=== PATIENT | female | born 1940 | race Caucasian/White ===

== ENCOUNTER 2021-05-13 07:40 | Observation (INO) ==
[2021-05-13] MEDS ORDERED: NS 500 ML IV 500 ML IV ONE ×2 (08:05→08:11)
--- NOTE | 2021-05-13 08:12 | DR.GENAD ---
HPI Time Seen Time Seen by Provider: 05/13/21 08:04 PCP Primary Care Physician: GINA FUENTES Complaint/Symptoms Chief Complaint Doctors Comments: 80 female presentas with recurrent falls over the past several weeks. Gets up, left leg gives out and falls. No acute injuries. Has chronic pain of low back, Denies recent illness - no fevers, chills, URI symptoms, bowel or bladder complaints. Has an ortho appt in 2 days for evaluation of her leg weakness. Chief Complaint:: PT STATES THAT SHE HAS HAD MULTIPLE FALLS OVER THE PAST FEW DAYS AND C/O GENERALIZED PAIN "ALL OVER." DENIES LOC. COVID-19 Coronavirus risk:travel/contact w/high risk person: No Has patient experienced Coronavirus symptoms: No Nurses notes reviewed Nurses Notes Review: Yes Source History Provided: Patient Mode of Arrival Mode of Arrival: EMS Timing Onset of Chief Complaint: 05/13/21 Came on: Suddenly Duration Duration: Intermittent Duration: Weeks Severity Severity: Mild Modifying Factors Worsens:: attempts at ambulation Improves:: rest Associated Signs and Symptoms Associated Signs and Symptoms: low back pain, otherwise denies PMH PMH Past Medical History: Yes Past Medical History: Arthritis, Asthma, CHF and COPD Past Surgical History: Yes Surgical History: Cholecystectomy Past Surgical History Comment: COLON SURGERY (removal of tumor), hernia repair, lipoma removal Family History History of Family Medical Conditions: No (UNSURE) Social History Does patient currently use any type of tobacco product: No Have you used tobacco products in the last 12 months: No Type of Tobacco Use: None Does any household member use tobacco: No Alcohol Use: None Do you use any recreational Drugs:: No Lives With: Family Lives Where: Home Travel Risk Coronavirus risk:travel/contact w/high risk person: No Has patient experienced Coronavirus symptoms: No Infectious screening In the last 2 months have you had wt loss of >10#?: NO Have you had fever, night sweats or hemotysis?: No Have you traveled outside the country in the last 6 months?: No Isolation: Standard ROS Review of Systems Constitutional: No Symptoms Reported; negative Chills and Fever Eyes: No Symptoms Reported ENTM: No Symptoms Reported Respiratoy: No Symptoms Reported Cardiovascular: No Symptoms Reported Gastrointestinal/Abdominal: No Symptoms Reported Genitourinary: No Symptoms Reported Neurological: No Symptoms Reported Musculoskeletal: Back Pain Integumentary: No Symptoms Reported Hematologic/Lymphatic: No Symptoms Reported Endocrine: No Symptoms Reported Psychiatric: No Symptoms Reported All Other Systems: Reviewed and Negative PE Vital Signs Vitals: Temperature 98.0 F Pulse Rate 67 Respiratory Rate 20 Blood Pressure 125/59 O2 Sat by Pulse Oximetry 96 General Limitations: No Limitations General Appearance: Alert, In No Apparent Distress and Other (+ [facility] [place]) Head Head Exam: Normal Inspection and Atraumatic Eyes Eye exam: Normal Appearance ENT ENT Exam: Normal Exam Neck Neck Exam: Normal Inspection and Full ROM Chest Chest Inspection: Normal Inspection; negative Tenderness Respiratory Respiratory Exam: Normal Lung Sounds Bilat Respiratory Exam: Bilateral: Clear to Auscultation Cardiovascular Cardiovascular Exam: Regular Rate, Normal Rhythm and Normal Heart Sounds Abdominal Exam Abdominal Exam: Normal Inspection; negative Tenderness Extremities Extremities Exam: Normal Inspection, Full ROM and Edema Back Back Exam: Normal Inspection and Tenderness (paralumbar region) Neurologic Neurological Exam: Alert, Oriented X3 and CN II-XII Intact; negative Motor Sensory Deficit Psychiatric Psychiatric Exam: Normal Affect Skin Skin Exam: Warm, Dry and Intact MDM Differential Diagnosis Differential Diagnosis: DDD, spinal stenosis, OA, sciatica COURSE Treatment Treatment: 80 y/o female with several falls over past weeks due to legs giving out. PE benign, w/u performed, no acute abnormalities. Does have lumbar DDD. Has appt with ortho in 2 days. Was given tramadol here for pain. [facility] pt very limited on her own. U/A dirty, possible UTI. Will add urine culture, cover with IV Rocephin. Discussed with the hospitalist, Dr. Boo. Will admit for observation. Consultation Called: 10:18 Call Returned: 10:20 Consultation Comments: Dr. Boo agrees to observation admission. ROR Labs Reviewed Laboratory Results Reviewed?: Yes Result Diagrams: 05/13/21 08:27 05/13/21 08:27 Laboratory: WBC 6.4 X10^3/uL (3.6-10.0) 05/13/21 08:27 RBC 3.59 X10^6/uL (3.5-5.4) 05/13/21 08:27 Hgb 11.9 g/dL (12.0-16.0) L 05/13/21 08: Hct 34.6 % (36.0-47.0) L 05/13/21 08:27 MCV 96.5 fL (80.0-100.0) 05/13/21 08: MCH 33.1 pg (27.0-34.0) 05/13/21 08: MCHC 34.3 g/dL (33.0-35.0) 05/13/21 08: RDW 13.8 % (11.6-16.5) 05/13/21 08: Plt Count 201 X10^3/uL (150.0-450.0) 05/13/21 08: MPV 8.7 fL (7.4-11.0) 05/13/21 08: Neut % (Auto) 73.1 % (42.0-75.0) 05/13/21 08: Lymph % (Auto) 17.5 % (21.0-51.0) L 05/13/21 08: [place] % (Auto) 7.7 % (0.0-13.0) 05/13/21 08: Eos % (Auto) 1.1 % (0.9-2.9) 05/13/21 08: Baso % (Auto) 0.6 % (0.2-1.0) 05/13/21 08: Neut # (Auto) 4.7 x10^3/uL (2.2-4.8) 05/13/21 08: Lymph # (Auto) 1.1 X10^3/uL (1.3-2.9) L 05/13/21 08:27 [place] # (Auto) 0.5 x10^3/uL (0.3-0.8) 05/13/21 08:27 Eos # (Auto) 0.1 x10^3/uL (0.0-0.2) 05/13/21 08: Baso # (Auto) 0.0 X10^3/uL (0.0-0.1) 05/13/21 08: Absolute Nucleated RBC 0.1 /100WBC 05/13/21 08:27 Sodium 137 mmol/L (136-145) 05/13/21 08:27 Corrected Sodium TNP 05/13/21 08:27 Potassium 4.9 mmol/L (3.5-5.1) 05/13/21 08:27 Chloride 103 mmol/L (98-107) 05/13/21 08:27 Carbon Dioxide 23.9 mmol/L (21-32) 05/13/21 08:27 BUN 38 mg/dL (7-18) H 05/13/21 08:27 Creatinine 1.83 mg/dL (0.55-1.02) H 05/13/21 08:27 Est GFR (MDRD) Af Amer 34 (>60) L 05/13/21 08:27 Est GFR (MDRD) Non-Af 28 (>60) L 05/13/21 08:27 Glucose 108 mg/dL (65-99) H 05/13/21 08:27 Calcium 9.0 mg/dL (8.5-10.1) 05/13/21 08:27 Corrected Calcium TNP 05/13/21 08:27 Magnesium 2.9 mg/dL (1.7-2.9) 05/13/21 08:27 Total Bilirubin 0.40 mg/dL (0.2-1.0) 05/13/21 08:27 AST 26 Units/L (15-37) 05/13/21 08:27 ALT 57 Units/L (12-78) 05/13/21 08:27 Alkaline Phosphatase 92 Units/L (46-116) 05/13/21 08:27 Creatine Kinase 155 Units/L (26-192) 05/13/21 08:27 CK-MB (CK-2) 4.1 ng/mL (0-4.0) H 05/13/21 08:27 CK/CKMB % Calc 2.7 % (<4) 05/13/21 08:27 Troponin I < 0.02 ng/mL (0-1.5) 05/13/21 08:27 Total Protein 7.8 g/dL (6.4-8.2) 05/13/21 08:27 Albumin 3.8 g/dL (3.4-5.0) 05/13/21 08:27 Globulin 4.0 g/dL (2.5-4.5) 05/13/21 08:27 Albumin/Globulin Ratio 1.0 Ratio (1.1-2.1) L 05/13/21 08:27 Specimen Type Random urine 05/13/21 09:32 Urine Color Yellow (YELLOW) 05/13/21 09:32 Urine Appearance Clear (CLEAR) 05/13/21 09:32 Urine pH 5.0 (5.0 - 8.0) 05/13/21 09:32 Ur Specific [place] 1.015 (1.000-1.030) 05/13/21 09:32 Urine Protein 2+ (NEGATIVE) 05/13/21 09:32 Urine Glucose (UA) Negative (NEGATIVE) 05/13/21 09:32 Urine Ketones Negative (NEGATIVE) 05/13/21 09:32 Urine Occult Blood Negative (NEGATIVE) 05/13/21 09:32 Urine Nitrite Negative (NEGATIVE) 05/13/21 09:32 Urine Bilirubin Negative (NEGATIVE) 05/13/21 09:32 Urine Urobilinogen Normal (NORMAL) 05/13/21 09:32 Ur Leukocyte Esterase Negative (NEGATIVE) 05/13/21 09:32 Urine RBC 3-5 /HPF (0-3) A 05/13/21 09:32 Urine WBC 5-10 /HPF (0-5) A 05/13/21 09:32 Ur Squamous Epith Cells Numerous /HPF (NEGATIVE) 05/13/21 09:32 Ur Transition Epith Cell Few /HPF (NEGATIVE) 05/13/21 09:32 Amorphous Sediment 1+ /HPF (NEGATIVE) 05/13/21 09:32 Urine Bacteria Trace /HPF (NEGATIVE) 05/13/21 09:32 Hyaline Casts Few /LPF (NEGATIVE) 05/13/21 09:32 Granular Casts Few /LPF (NEGATIVE) 05/13/21 09:32 Ur Culture Indicated? No/not indicated 05/13/21 09:32 Other Results Comments: Labs acceptable, sirty urine, but possible UTI. XRAY XRAY Interpreted by: Radiologist X-ray Results: Lumbar CT with DDD Opioid Opioid Risk Tool Age (Negrito box if 16-45): No History of Preadolescent Sexual Abuse: No Total: 0 Total Score Risk Category: Low Risk Copyright: Víctor INGRAM predicting aberrant behaviors Diagnosis Discharge Problem: DDD (degenerative disc disease), lumbar, General weakness, Acute UTI
[2021-05-13] MEDS ORDERED: ULTRAM PO ONE (08:30)
[2021-05-13] MEDS ORDERED: ULTRAM ONE ×2 (08:30→12:15)
[2021-05-13 08:34] LABS: BASOPHILS % (AUTO) 0.6 % (0.2-1.0); EOSINOPHILS # (AUTO) 0.1 x10^3/uL (0.0-0.2); EOSINOPHILS % (AUTO) 1.1 % (0.9-2.9); HEMATOCRIT 34.6 % (36.0-47.0); HEMOGLOBIN 11.9 g/dL (12.0-16.0); LYMPHOCYTES # (AUTO) 1.1 X10^3/uL (1.3-2.9); LYMPHOCYTES % (AUTO) 17.5 % (21.0-51.0); MEAN CORPUSCULAR HEMOGLOBIN 33.1 pg (27.0-34.0); MEAN CORPUSCULAR HGB CONC 34.3 g/dL (33.0-35.0); MEAN CORPUSCULAR VOLUME 96.5 fL (80.0-100.0); MEAN PLATELET VOLUME 8.7 fL (7.4-11.0); MONOCYTES # (AUTO) 0.5 x10^3/uL (0.3-0.8); MONOCYTES % (AUTO) 7.7 % (0.0-13.0); NEUTROPHILS # (AUTO) 4.7 x10^3/uL (2.2-4.8); NEUTROPHILS % (AUTO) 73.1 % (42.0-75.0); PLATELET COUNT 201 X10^3/uL (150.0-450.0); RED BLOOD COUNT 3.59 X10^6/uL (3.5-5.4); RED CELL DISTRIBUTION WIDTH 13.8 % (11.6-16.5); WHITE BLOOD COUNT 6.4 X10^3/uL (3.6-10.0)
[2021-05-13 09:13] LABS: ALANINE AMINOTRANSFERASE 57 Units/L (12-78); ALBUMIN 3.8 g/dL (3.4-5.0); ALKALINE PHOSPHATASE 92 Units/L (46-116); ASPARTATE AMINO TRANSFERASE 26 Units/L (15-37); BLOOD UREA NITROGEN 38 mg/dL (7-18); CARBON DIOXIDE 23.9 mmol/L (21-32); CHLORIDE 103 mmol/L (98-107); CKMB % 2.7 % (<4); CREATINE KINASE 155 Units/L (26-192); CREATININE 1.83 mg/dL (0.55-1.02); MAGNESIUM 2.9 mg/dL (1.7-2.9); SODIUM 137 mmol/L (136-145); TOTAL PROTEIN 7.8 g/dL (6.4-8.2); TROPONIN I < 0.02 ng/mL (0-1.5); eGFR NON BLACK RACES 28 (>60)
--- NOTE | 2021-05-13 09:16 | CT ---
HISTORYLLE WEAKNESS, FALLINGSTUDYLUMBAR SPINE W/O CONCOMPARISONNoneTECHNIQUEMultiple CT axial images of the lumbar spine were obtained without IV contrast. Coronal and sagittal images were reconstructed. Dose reduction techniques included Automated Exposure Control (AEC) and adjustment of mA and kV.FINDINGSMinimal levoconvex spinal asymmetry. The usual lordosis is maintained.The heights of the vertebral bodies are normal. Very minimal grade 1 anterior spondylolisthesis of L4 on L5 is due to left-sided spondylolysis. Minimal retrolisthesis of L5 on S1 is due to degenerative change. There is no fracture.Degenerative disc disease present at multiple levels, most severe at L2-3 and L5-S1. 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 No hydronephrosis. Probable right renal cyst measures 2.5 cm. No abdominal aortic aneurysm.IMPRESSION1. No acute finding2. Degenerative changesElectronically signed by: Edward Parson (May 13, 2021 09:15:07)
[2021-05-13 09:18] LABS: CREATINE KINASE MB 4.1 ng/mL (0-4.0)
[2021-05-13 09:51] LABS: BILIRUBIN,URINE NEGATIVE (NEGATIVE); BLOOD/HEMOGLOBIN,URINE NEGATIVE (NEGATIVE); GLUCOSE, URINE NEGATIVE (NEGATIVE); KETONES,URINE NEGATIVE (NEGATIVE); LEUKOCYTE ESTERASE ,URINE NEGATIVE (NEGATIVE); NITRITES,URINE NEGATIVE (NEGATIVE); PROTEIN,URINE 2+ (NEGATIVE); UROBILINOGEN,URINE NORMAL (NORMAL)
[2021-05-13 10:00] LABS: APPEARANCE,URINE CLEAR (CLEAR); COLOR,URINE YELLOW (YELLOW)
[2021-05-13 10:10] LABS: AMORPHOUS SEDIMENT,UR 1+ /HPF (NEGATIVE); BACTERIA,URINE TRACE /HPF (NEGATIVE); GRANULAR CASTS,URINE FEW /LPF (NEGATIVE); HYALINE CASTS, URINE FEW /LPF (NEGATIVE); SQUAMOUS EPITHELIAL CELL,UR NUMEROUS /HPF (NEGATIVE); TRANSITIONAL EPI CELLS,URINE FEW /HPF (NEGATIVE)
[2021-05-13] MEDS: ULTRAM PO PRN ×2 (12:19→22:53)
[2021-05-13] MEDS ORDERED: ROCEPHIN 1 GRAM IV PREMIX 1 G/50 ML IV.SOLN. IV ONE (12:20)
[2021-05-13] MEDS: ROCEPHIN 1 GRAM IV PREMIX 1 G/50 ML IV.SOLN. IV SCH (13:21)
--- NOTE | 2021-05-13 15:42 | DR.H&P ---
H&P - History & Physical for Day of: H&P Date: 05/13/21 - Chief Complaint Chief Complaint: weakness, falls, lower back pain - History of Present Illness History of Present Illness: PT IS 80 WF ER ADMISSION WITH CO MULTIPLE RECENT FALLS WITH LEGS WEAK AND LOWER BACK PAIN. PT HAS PMH OF CHF, COPD, OA. PT DENIES ANY FEVER OR CCC. PT DENIES ANY KNOWN COVID EXPOSURE. PT ADMITTED FOR TREATMENT AND EVALUATION OF ACUTE ILLNESS. - Past Medical History Past Medical History: COPD, Asthma, Arthritis, CHF - Past Surgical History Surgical History: Cholecystectomy - Social History Does patient currently use any type of tobacco product: No Have you used tobacco products in the last 12 months: No Type of Tobacco Use: None Does any household member use tobacco: No Alcohol Use: None Prescription drug monitoring program results: PDMP reviewed and no concerns identified - Medications Home Medications: codeine Adverse Reaction (Verified 05/13/21 07:52) CONTINUE taking the following medications cephalexin 500 mg PO Q8H 05/13/21 [History] cetirizine 10 mg PO HS 05/13/21 [History] fenofibrate nanocrystallized 145 mg PO DAILY 05/13/21 [History] fluticasone propion-salmeterol 1 inh INHALATION BID 05/13/21 [History] gabapentin 100 mg PO TID 05/13/21 [History] ibuprofen 600 mg PO TID PRN 05/13/21 [History] meloxicam 15 mg PO DAILY 05/13/21 [History] methocarbamol 750 mg PO TID PRN 05/13/21 [History] omeprazole 40 mg PO DAILY 05/13/21 [History] - Review of Systems Constitutional: Weakness Eyes: No Symptoms Reported ENT: No Symptoms Reported Respiratory: No Symptoms Reported Cardiovascular: No Symptoms Reported Gastrointestinal: No Symptoms Reported Musculoskeletal: Back Pain, Leg Pain Skin: No Symptoms Reported Neurological: Weakness - Physical Exam Vital Signs: Temperature 98.0 F Pulse Rate 69 Respiratory Rate 20 Blood Pressure 116/62 O2 Sat by Pulse Oximetry 94 Oriented: Normal Eyes: Normal Ear: Normal Nose: Normal Throat: Normal Respiratory: RLL Diminished, LLL Diminished Cardiovascular: Normal : Normal Auscultation: Bowel Sounds: Normal Palpation: Normal Tenderness: Normal Skin: Decreased Turgur Musculoskeletal: Motor Deficit Psychiatric: Normal Speech Pattern: Clear, Appropriate - Assessment/Plan (1) General weakness Status: Acute Plan: ADMIT, GENTLE IV HYDRATION. STRICT I&S. EKG AND CXR ON ADMISSION, BLOOD AND URINE CULTURE ON ADMISSION. VERIFY HOME MEDICATION, IV ROCEPHIN. BP AND CARDIAC MONITORING (2) DDD (degenerative disc disease), lumbar Status: Acute (3) Acute UTI Status: Acute (4) Falls frequently Status: Acute - Allergies Allergies/Adverse Reactions: Allergies Allergy/AdvReac Type Severity Reaction Status Date / Time rosalino AdvReac Verified 05/13/21 07:52
--- NOTE | 2021-05-13 16:01 | RAD ---
HISTORYHX COPD, CHFSTUDYCHEST, 1 VIEWCOMPARISONNone availableTECHNIQUEChest radiographic imaging, frontal projection, 1 imageFINDINGSMild cardiomegaly.Mild increased interstitial markings; likely senescent changes.No focal airspace disease.No pleural effusion.No pneumothorax.No acute osseous abnormality.IMPRESSIONNo imaging findings of acute cardiopulmonary disease.Electronically signed by: Vipin Luque (May 13, 2021 15:59:50)
[2021-05-13] MEDS ORDERED: NORCO 5/325 MG TAB ONE (16:39)
[2021-05-13] MEDS: NORCO 5/325 MG TAB PO PRN (16:45)
[2021-05-13] MEDS: NS 1000 ML 1,000 ML IV SCH ×2 (16:46→21:38)
[2021-05-13] MEDS: NEURONTIN CAP 100 MG PO SCH ×2 (16:46→21:38)
[2021-05-13] MEDS ORDERED: NS 1000 ML 1,000 ML ONE (16:47)
[2021-05-13] MEDS ORDERED: NEURONTIN CAP 100 MG ONE (16:47)
--- NOTE | 2021-05-13 17:13 | RAD ---
HISTORYLeft hip painSTUDYTwo views right and left hipCOMPARISONNoneFINDINGSA single frontal view of the pelvis demonstrates the pelvic ring to be intact. No evidence for acute cortical disruption or dislocation of the hip can be observed. Frog leg views of the right and left hip fail to demonstrate evidence for fracture. Moderate degenerative changes of the right and left hip are observed with osteophyte formation of the right and left superior lateral acetabulum.IMPRESSIONModerate degenerative changes of the right and left hip without acute abnormality identified.Electronically signed by: JIN RODRIGUEZ (May 13, 2021 17:11:17)
[2021-05-13] MEDS: ZyrTEC TAB 10 MG PO SCH (21:38)
[2021-05-14] MEDS: NEURONTIN CAP 100 MG PO SCH ×3 (05:26→21:02)
[2021-05-14] MEDS: NS 1000 ML 1,000 ML IV SCH ×2 (05:26→20:35)
[2021-05-14 06:07] LABS: BASOPHILS % (AUTO) 0.8 % (0.2-1.0); EOSINOPHILS # (AUTO) 0.1 x10^3/uL (0.0-0.2); HEMATOCRIT 29.3 % (36.0-47.0); HEMOGLOBIN 10.1 g/dL (12.0-16.0); LYMPHOCYTES # (AUTO) 1.2 X10^3/uL (1.3-2.9); MEAN CORPUSCULAR HEMOGLOBIN 33.2 pg (27.0-34.0); MEAN CORPUSCULAR HGB CONC 34.3 g/dL (33.0-35.0); MEAN CORPUSCULAR VOLUME 96.8 fL (80.0-100.0); MEAN PLATELET VOLUME 8.8 fL (7.4-11.0); MONOCYTES # (AUTO) 0.4 x10^3/uL (0.3-0.8); NEUTROPHILS # (AUTO) 3.2 x10^3/uL (2.2-4.8); NEUTROPHILS % (AUTO) 64.2 % (42.0-75.0); PLATELET COUNT 171 X10^3/uL (150.0-450.0); RED BLOOD COUNT 3.03 X10^6/uL (3.5-5.4); RED CELL DISTRIBUTION WIDTH 13.6 % (11.6-16.5)
[2021-05-14 06:29] LABS: ALANINE AMINOTRANSFERASE 43 Units/L (12-78); ALKALINE PHOSPHATASE 73 Units/L (46-116); ASPARTATE AMINO TRANSFERASE 21 Units/L (15-37); BLOOD UREA NITROGEN 33 mg/dL (7-18); CALCIUM 8.5 mg/dL (8.5-10.1); CARBON DIOXIDE 25.8 mmol/L (21-32); CHLORIDE 108 mmol/L (98-107); COR CA(FOR HYPOALB) 9.3 mg/dL (8.5-10.1); CREATININE 1.27 mg/dL (0.55-1.02); SODIUM 139 mmol/L (136-145); TOTAL PROTEIN 6.1 g/dL (6.4-8.2); eGFR NON BLACK RACES 43 (>60)
[2021-05-14] MEDS: NORCO 5/325 MG TAB PO PRN ×2 (07:48→16:20)
[2021-05-14] MEDS: TRICOR TAB 145 MG PO SCH (08:54)
[2021-05-14] MEDS: ROCEPHIN 1 GRAM IV PREMIX 1 G/50 ML IV.SOLN. IV SCH (08:54)
[2021-05-14] MEDS: LOVENOX INJ 40 MG SYR SC SCH (08:58)
[2021-05-14 09:30] LABS: URIC ACID 4.9 mg/dL (2.6-6.0)
[2021-05-14 10:07] LABS: RHEUMATOID FACTOR NEGATIVE (NEGATIVE)
[2021-05-14] MEDS: MORPHINE SULFATE INJ 2 MG INJ IVP PRN ×2 (11:25→20:35)
[2021-05-14] MEDS: SOLU-Medrol 40 MG VIAL IVP SCH ×3 (14:38→22:00)
[2021-05-14] MEDS: ULTRAM PO PRN (14:40)
[2021-05-14] MEDS: ZyrTEC TAB 10 MG PO SCH (20:35)
[2021-05-15] MEDS: NORCO 5/325 MG TAB PO PRN ×2 (03:17→15:00)
[2021-05-15] MEDS: SOLU-Medrol 40 MG VIAL IVP SCH ×3 (05:12→14:10)
[2021-05-15] MEDS: NEURONTIN CAP 100 MG PO SCH ×3 (05:12→22:01)
[2021-05-15 08:36] LABS: BASOPHILS % (AUTO) 0.1 % (0.2-1.0); HEMATOCRIT 33.4 % (36.0-47.0); HEMOGLOBIN 11.3 g/dL (12.0-16.0); LYMPHOCYTES # (AUTO) 0.6 X10^3/uL (1.3-2.9); LYMPHOCYTES % (AUTO) 8.9 % (21.0-51.0); MEAN CORPUSCULAR HEMOGLOBIN 32.8 pg (27.0-34.0); MEAN CORPUSCULAR HGB CONC 33.8 g/dL (33.0-35.0); MEAN CORPUSCULAR VOLUME 97.1 fL (80.0-100.0); MEAN PLATELET VOLUME 8.9 fL (7.4-11.0); MONOCYTES # (AUTO) 0.1 x10^3/uL (0.3-0.8); MONOCYTES % (AUTO) 1.2 % (0.0-13.0); NEUTROPHILS # (AUTO) 6.1 x10^3/uL (2.2-4.8); NEUTROPHILS % (AUTO) 89.8 % (42.0-75.0); PLATELET COUNT 195 X10^3/uL (150.0-450.0); RED BLOOD COUNT 3.44 X10^6/uL (3.5-5.4); RED CELL DISTRIBUTION WIDTH 13.5 % (11.6-16.5); WHITE BLOOD COUNT 6.8 X10^3/uL (3.6-10.0)
[2021-05-15 08:52] LABS: ALANINE AMINOTRANSFERASE 46 Units/L (12-78); ALBUMIN 3.1 g/dL (3.4-5.0); ALKALINE PHOSPHATASE 82 Units/L (46-116); ASPARTATE AMINO TRANSFERASE 31 Units/L (15-37); BLOOD UREA NITROGEN 22 mg/dL (7-18); CALCIUM 8.9 mg/dL (8.5-10.1); CARBON DIOXIDE 28.4 mmol/L (21-32); CHLORIDE 105 mmol/L (98-107); COR CA(FOR HYPOALB) 9.6 mg/dL (8.5-10.1); COR NA(FOR HYPERGLY) 139 mmol/L (136-145); CREATININE 1.06 mg/dL (0.55-1.02); SODIUM 138 mmol/L (136-145); TOTAL PROTEIN 6.9 g/dL (6.4-8.2); eGFR NON BLACK RACES 53 (>60)
[2021-05-15] MEDS: ROCEPHIN 1 GRAM IV PREMIX 1 G/50 ML IV.SOLN. IV SCH (09:03)
[2021-05-15] MEDS: TRICOR TAB 145 MG PO SCH (09:04)
[2021-05-15] MEDS: LOVENOX INJ 40 MG SYR SC SCH (09:04)
[2021-05-15] MEDS: ZESTRIL TAB 5 MG PO SCH (09:08)
[2021-05-15] MEDS: MORPHINE SULFATE INJ 2 MG INJ IVP PRN ×2 (09:09→18:15)
[2021-05-15] MEDS ORDERED: COLACE CAP 100 MG PO PRN (09:16)
[2021-05-15] MEDS ORDERED: MILK OF MAGNESIA PO PRN (09:16)
--- NOTE | 2021-05-15 09:49 | CT ---
HISTORYPAIN IN PELVISSTUDYCT pelvis without IV contrastCOMPARISONX-ray 05/13/2021TECHNIQUEMultiple axial images of the pelvis are obtained without the administration of IV contrast. Dose reduction techniques including Automated Exposure Control (AEC) and adjustment of mA and kV were utilized.FINDINGSModerate arthritic changes are seen in both hips, right greater than left. No widening of the symphysis pubis or SI joints. Fracture or dislocation is seen. Prior anterior pelvic wall repair without suggestion hernia in the pelvis. No inguinal hernia is seen. Atrophy is seen in the gluteus muscles bilaterally.Large posterior osteophytes are seen at L5-S1 with moderate posterior element hypertrophy. Likely moderate thecal sac effacement and prominent lateral recess stenosis at this level. Prominent bilateral neural foraminal narrowing is seen. Likely prominent central canal lateral recess stenosis at L4-5. Bladder is partially decompressed with a Kim catheter.IMPRESSIONModerate arthritic changes in the hips. No acute bony abnormality is identified.Prominent spondylosis in the lower lumbar spine.Electronically signed by: Santy Todd (May 15, 2021 09:46:16)
[2021-05-15] MEDS: NS 1000 ML 1,000 ML IV SCH (19:35)
[2021-05-15] MEDS: ZyrTEC TAB 10 MG PO SCH (20:40)
[2021-05-15] MEDS: COLACE CAP 100 MG PO SCH (20:40)
[2021-05-15] MEDS: MILK OF MAGNESIA PO SCH (20:40)
--- NOTE | 2021-05-15 22:31 | RAD ---
HISTORYPREVIOUS FALL/PAIN Relevant Clinical InformationSTUDYANKLE, LEFTCOMPARISONNoneFINDINGSNo acute cortical disruption or dislocation can be identified. The ankle mortise remains well aligned. No significant soft tissue swelling or injury can be seen. The visualized portions of the talus and calcaneus are unremarkable. small posterior calcaneal osteophyte.IMPRESSIONSmall posterior calcaneal osteophyte.No acute bony abnormalityElectronically signed by: Severino Cuellar (May 15, 2021 22:28:46)
--- NOTE | 2021-05-15 22:32 | RAD ---
HISTORYPREVIOUS FALL/PAIN Relevant Clinical InformationSTUDYFOOT, LEFTCOMPARISONNoneFINDINGSNo acute cortical disruption or dislocation can be identified. No significant soft tissue swelling or injury can be seen. The visualized portions of the talus and calcaneus are unremarkable. Mild hammertoe deformities.IMPRESSIONNo acute bony abnormalityElectronically signed by: Severino Cuellar (May 15, 2021 22:30:03)
--- NOTE | 2021-05-15 22:35 | RAD ---
HISTORYPREVIOUS FALL/PAIN Relevant Clinical InformationSTUDYLOWER LEG, TIB/FIB LEFTCOMPARISONNoneFINDINGSAP and lateral radiographs of the lower extremity demonstrate no evidence for acute cortical disruption. No significant soft tissue abnormality can be identified. Moderate degenerative changes involving the left knee joint. Vascular calcifications.IMPRESSIONModerate degenerative osteoarthritic changes left knee joint.No acute bony abnormalityElectronically signed by: Severino Cuellar (May 15, 2021 22:32:30)
[2021-05-16] MEDS: NS 1000 ML 1,000 ML IV SCH ×2 (00:22→16:05)
[2021-05-16] MEDS: NEURONTIN CAP 100 MG PO SCH ×2 (05:21→13:02)
[2021-05-16] MEDS: NORCO 5/325 MG TAB PO PRN ×2 (05:21→16:02)
[2021-05-16 08:15] LABS: BASOPHILS # (AUTO) 0.1 X10^3/uL (0.0-0.1); BASOPHILS % (AUTO) 1.3 % (0.2-1.0); LYMPHOCYTES # (AUTO) 0.7 X10^3/uL (1.3-2.9); LYMPHOCYTES % (AUTO) 6.6 % (21.0-51.0); MEAN CORPUSCULAR HEMOGLOBIN 32.9 pg (27.0-34.0); MEAN CORPUSCULAR HGB CONC 34.3 g/dL (33.0-35.0); MEAN CORPUSCULAR VOLUME 96.1 fL (80.0-100.0); MEAN PLATELET VOLUME 8.8 fL (7.4-11.0); MONOCYTES # (AUTO) 0.9 x10^3/uL (0.3-0.8); MONOCYTES % (AUTO) 8.7 % (0.0-13.0); NEUTROPHILS % (AUTO) 83.4 % (42.0-75.0); PLATELET COUNT 233 X10^3/uL (150.0-450.0); RED BLOOD COUNT 3.33 X10^6/uL (3.5-5.4); RED CELL DISTRIBUTION WIDTH 13.6 % (11.6-16.5); WHITE BLOOD COUNT 10.7 X10^3/uL (3.6-10.0)
[2021-05-16] MEDS: LOVENOX INJ 40 MG SYR SC SCH (08:25)
[2021-05-16] MEDS: COLACE CAP 100 MG PO SCH ×3 (08:26→20:39)
[2021-05-16] MEDS: ZESTRIL TAB 5 MG PO SCH (08:26)
[2021-05-16] MEDS: MILK OF MAGNESIA PO SCH ×3 (08:27→20:39)
[2021-05-16] MEDS: ULTRAM PO PRN (08:27)
[2021-05-16] MEDS: ROCEPHIN 1 GRAM IV PREMIX 1 G/50 ML IV.SOLN. IV SCH (08:29)
[2021-05-16] MEDS: TRICOR TAB 145 MG PO SCH (08:29)
[2021-05-16 08:56] LABS: PLATELET MORPHOLOGY COMMENT NORMAL (NORMAL)
[2021-05-16 09:13] LABS: ALANINE AMINOTRANSFERASE 47 Units/L (12-78); ALKALINE PHOSPHATASE 78 Units/L (46-116); ASPARTATE AMINO TRANSFERASE 32 Units/L (15-37); BLOOD UREA NITROGEN 22 mg/dL (7-18); CALCIUM 8.8 mg/dL (8.5-10.1); CARBON DIOXIDE 30.7 mmol/L (21-32); CHLORIDE 107 mmol/L (98-107); COR CA(FOR HYPOALB) 9.6 mg/dL (8.5-10.1); COR NA(FOR HYPERGLY) 140 mmol/L (136-145); CREATININE 0.91 mg/dL (0.55-1.02); SODIUM 140 mmol/L (136-145); TOTAL PROTEIN 6.4 g/dL (6.4-8.2); eGFR NON BLACK RACES > 60 (>60)
[2021-05-16] MEDS: MORPHINE SULFATE INJ 2 MG INJ IVP PRN ×3 (09:40→20:05)
[2021-05-16] MEDS ORDERED: KENALOG INJ 40 MG IM ONE (11:17)
[2021-05-16] MEDS ORDERED: TORADOL 30 MG VIAL IM ONE (11:17)
[2021-05-16] MEDS ORDERED: DULCOLAX SUPPOSITORY 10 MG RECTAL ONE (11:19)
[2021-05-16] MEDS: NEURONTIN CAP 300 MG PO SCH ×2 (14:04→21:05)
[2021-05-16] MEDS ORDERED: XANAX PO ONE (18:18)
[2021-05-16] MEDS: ZyrTEC TAB 10 MG PO SCH (20:34)
[2021-05-17] MEDS: MORPHINE SULFATE INJ 2 MG INJ IVP PRN ×3 (03:53→21:07)
[2021-05-17] MEDS: NS 1000 ML 1,000 ML IV SCH ×2 (04:10→17:42)
[2021-05-17] MEDS: NEURONTIN CAP 300 MG PO SCH ×3 (05:47→21:06)
[2021-05-17 08:41] LABS: BASOPHILS # (AUTO) 0.1 X10^3/uL (0.0-0.1); BASOPHILS % (AUTO) 0.6 % (0.2-1.0); EOSINOPHILS # (AUTO) 0.1 x10^3/uL (0.0-0.2); EOSINOPHILS % (AUTO) 0.8 % (0.9-2.9); HEMATOCRIT 30.2 % (36.0-47.0); HEMOGLOBIN 10.3 g/dL (12.0-16.0); LYMPHOCYTES # (AUTO) 1.2 X10^3/uL (1.3-2.9); LYMPHOCYTES % (AUTO) 9.4 % (21.0-51.0); MEAN CORPUSCULAR HEMOGLOBIN 33.1 pg (27.0-34.0); MEAN CORPUSCULAR HGB CONC 34.2 g/dL (33.0-35.0); MEAN CORPUSCULAR VOLUME 96.9 fL (80.0-100.0); MEAN PLATELET VOLUME 8.5 fL (7.4-11.0); MONOCYTES # (AUTO) 1.2 x10^3/uL (0.3-0.8); MONOCYTES % (AUTO) 9.5 % (0.0-13.0); NEUTROPHILS # (AUTO) 9.9 x10^3/uL (2.2-4.8); NEUTROPHILS % (AUTO) 79.7 % (42.0-75.0); PLATELET COUNT 207 X10^3/uL (150.0-450.0); RED BLOOD COUNT 3.11 X10^6/uL (3.5-5.4); RED CELL DISTRIBUTION WIDTH 13.8 % (11.6-16.5); WHITE BLOOD COUNT 12.4 X10^3/uL (3.6-10.0)
[2021-05-17] MEDS: LOVENOX INJ 40 MG SYR SC SCH (08:45)
[2021-05-17] MEDS: ZESTRIL TAB 5 MG PO SCH ×2 (08:45→14:40)
[2021-05-17] MEDS: ROCEPHIN 1 GRAM IV PREMIX 1 G/50 ML IV.SOLN. IV SCH (08:45)
[2021-05-17] MEDS: TRICOR TAB 145 MG PO SCH (08:46)
[2021-05-17 08:53] LABS: BLOOD UREA NITROGEN 29 mg/dL (7-18); CALCIUM 8.2 mg/dL (8.5-10.1); CARBON DIOXIDE 27.6 mmol/L (21-32); CHLORIDE 104 mmol/L (98-107); COR NA(FOR HYPERGLY) 137 mmol/L (136-145); CREATININE 1.09 mg/dL (0.55-1.02); SODIUM 137 mmol/L (136-145); eGFR NON BLACK RACES 51 (>60)
[2021-05-17] MEDS: MILK OF MAGNESIA PO SCH ×2 (11:42→20:39)
[2021-05-17] MEDS: COLACE CAP 100 MG PO SCH ×2 (11:42→20:39)
[2021-05-17 11:50] LABS: ALANINE AMINOTRANSFERASE 52 Units/L (12-78); ALBUMIN 2.5 g/dL (3.4-5.0); ALKALINE PHOSPHATASE 73 Units/L (46-116); ASPARTATE AMINO TRANSFERASE 43 Units/L (15-37); COR CA(FOR HYPOALB) 9.4 mg/dL (8.5-10.1); TOTAL PROTEIN 5.6 g/dL (6.4-8.2)
[2021-05-17] MEDS: NORCO 5/325 MG TAB PO PRN (14:38)
--- NOTE | 2021-05-17 15:56 | MRI ---
MR lumbar spine without contrastIndication: Low back pain with left lower extremity weaknessCOMPARISONJuly 2020TECHNIQUE: Multiplanar multisequence imaging through the lumbar spine without contrastFINDINGS: Multilevel spine disc degenerative change and facet arthropathy with slight anterolisthesis of L4 on L5 noted. There is endplate sclerosis and edema at L5-S1, most pronounced, with vacuum phenomena noted.No marked STIR signal abnormality identified.Conus terminates at the L2 pedicle level. Visualized abdominopelvic soft tissues show no acute abnormality. Mild SI joint DJD noted.T12-L1: Circumferential disc bulge and mild facet arthropathy contributes to mild spinal canal narrowing. Neural foramina are patent.L1-L2: Circumferential disc bulge and moderate facet arthropathy causes mild spinal canal narrowing. Minimal left and mild right neural foramina encroachment noted.L2-L3: Circumferential disc bulge and moderate facet arthropathy causes moderate to severe spinal canal stenosis on axial image 16. There is mild left and [id number] right neural foramina narrowingL3-L4: Circumferential disc bulge and moderate facet arthropathy contributes to mild spinal canal narrowing. Minimal neural foramina encroachment seen.L4-L5: Circumferential disc bulge and moderate facet arthropathy causes severe spinal canal stenosis on 20/8 and 29.There is moderate to severe left [id number] right neural foramina narrowing.L5-S1: Circumferential disc bulge and moderate facet arthropathy causes opzo-cb-panustal spinal canal narrowing with severe left neural foramina stenosis and moderate right neural foramina stenosis.IMPRESSION1. Multilevel spine disc degenerative change and facet arthropathy with spinal canal stenosis severe at L4-L5 and moderate to severe at L2-L32. Multilevel neural foramina narrowing, with stenosis worse on the left at L5-S1.Electronically signed by: SHU MCGINNIS (May 17, 2021 15:54:33)
[2021-05-17] MEDS: ZyrTEC TAB 10 MG PO SCH (20:39)
[2021-05-18] MEDS: NEURONTIN CAP 300 MG PO SCH ×3 (05:41→21:46)
[2021-05-18] MEDS: NORCO 7.5/325 MG TAB PO PRN ×2 (05:41→11:26)
[2021-05-18] MEDS: NS 1000 ML 1,000 ML IV SCH ×3 (08:19→21:46)
[2021-05-18] MEDS: COLACE CAP 100 MG PO SCH ×2 (08:19→21:45)
[2021-05-18] MEDS: LOVENOX INJ 40 MG SYR SC SCH (08:20)
[2021-05-18] MEDS: ROCEPHIN 1 GRAM IV PREMIX 1 G/50 ML IV.SOLN. IV SCH (08:20)
[2021-05-18] MEDS: TRICOR TAB 145 MG PO SCH (08:20)
[2021-05-18] MEDS: MILK OF MAGNESIA PO SCH ×2 (08:20→21:45)
[2021-05-18 08:27] LABS: BASOPHILS % (AUTO) 0.3 % (0.2-1.0); EOSINOPHILS # (AUTO) 0.1 x10^3/uL (0.0-0.2); EOSINOPHILS % (AUTO) 0.7 % (0.9-2.9); HEMATOCRIT 30.7 % (36.0-47.0); HEMOGLOBIN 10.4 g/dL (12.0-16.0); LYMPHOCYTES # (AUTO) 1.6 X10^3/uL (1.3-2.9); LYMPHOCYTES % (AUTO) 11.8 % (21.0-51.0); MEAN CORPUSCULAR HEMOGLOBIN 32.9 pg (27.0-34.0); MEAN CORPUSCULAR HGB CONC 33.8 g/dL (33.0-35.0); MEAN CORPUSCULAR VOLUME 97.6 fL (80.0-100.0); MEAN PLATELET VOLUME 8.3 fL (7.4-11.0); MONOCYTES # (AUTO) 0.9 x10^3/uL (0.3-0.8); MONOCYTES % (AUTO) 6.9 % (0.0-13.0); NEUTROPHILS % (AUTO) 80.3 % (42.0-75.0); PLATELET COUNT 177 X10^3/uL (150.0-450.0); RED BLOOD COUNT 3.14 X10^6/uL (3.5-5.4); RED CELL DISTRIBUTION WIDTH 13.5 % (11.6-16.5); WHITE BLOOD COUNT 13.6 X10^3/uL (3.6-10.0)
[2021-05-18 08:35] LABS: ALANINE AMINOTRANSFERASE 42 Units/L (12-78); ALBUMIN 2.4 g/dL (3.4-5.0); ALKALINE PHOSPHATASE 74 Units/L (46-116); ASPARTATE AMINO TRANSFERASE 29 Units/L (15-37); BLOOD UREA NITROGEN 18 mg/dL (7-18); CALCIUM 8.3 mg/dL (8.5-10.1); CARBON DIOXIDE 30.3 mmol/L (21-32); CHLORIDE 104 mmol/L (98-107); COR CA(FOR HYPOALB) 9.6 mg/dL (8.5-10.1); COR NA(FOR HYPERGLY) 139 mmol/L (136-145); CREATININE 0.92 mg/dL (0.55-1.02); SODIUM 138 mmol/L (136-145); TOTAL PROTEIN 5.8 g/dL (6.4-8.2); eGFR NON BLACK RACES > 60 (>60)
[2021-05-18] MEDS: MORPHINE SULFATE INJ 2 MG INJ IVP PRN ×2 (09:38→16:48)
[2021-05-18] MEDS ORDERED: TORADOL 15 MG VIAL IVP ONE (12:31)
[2021-05-18] MEDS ORDERED: FLEXERIL TAB 10 MG PO PRN (12:31)
[2021-05-18] MEDS: CYMBALTA PO SCH (12:58)
[2021-05-18] MEDS: PERCOCET TAB 5/325 MG PO PRN (12:58)
[2021-05-18] MEDS: PREDNISONE TAB 10 MG PO SCH (12:58)
[2021-05-18] MEDS ORDERED: ZOFRAN INJ 4 MG VIAL ONE (16:37)
[2021-05-18] MEDS ORDERED: ZOFRAN INJ 4 MG VIAL IVP PRN (16:45)
[2021-05-18] MEDS: ZyrTEC TAB 10 MG PO SCH (21:45)
[2021-05-19] MEDS: NEURONTIN CAP 300 MG PO SCH ×3 (06:07→21:34)
[2021-05-19] MEDS: PERCOCET TAB 5/325 MG PO PRN ×2 (06:22→21:32)
[2021-05-19 07:02] LABS: BASOPHILS % (AUTO) 0.3 % (0.2-1.0); EOSINOPHILS # (AUTO) 0.1 x10^3/uL (0.0-0.2); EOSINOPHILS % (AUTO) 0.9 % (0.9-2.9); HEMATOCRIT 28.1 % (36.0-47.0); HEMOGLOBIN 9.5 g/dL (12.0-16.0); LYMPHOCYTES # (AUTO) 1.1 X10^3/uL (1.3-2.9); LYMPHOCYTES % (AUTO) 8.5 % (21.0-51.0); MEAN CORPUSCULAR HEMOGLOBIN 33.1 pg (27.0-34.0); MEAN CORPUSCULAR VOLUME 97.5 fL (80.0-100.0); MONOCYTES # (AUTO) 0.8 x10^3/uL (0.3-0.8); MONOCYTES % (AUTO) 6.3 % (0.0-13.0); NEUTROPHILS # (AUTO) 10.7 x10^3/uL (2.2-4.8); PLATELET COUNT 180 X10^3/uL (150.0-450.0); RED BLOOD COUNT 2.88 X10^6/uL (3.5-5.4); RED CELL DISTRIBUTION WIDTH 13.9 % (11.6-16.5); WHITE BLOOD COUNT 12.7 X10^3/uL (3.6-10.0)
[2021-05-19 07:20] LABS: ALANINE AMINOTRANSFERASE 42 Units/L (12-78); ALBUMIN 2.1 g/dL (3.4-5.0); ALKALINE PHOSPHATASE 83 Units/L (46-116); ASPARTATE AMINO TRANSFERASE 34 Units/L (15-37); BLOOD UREA NITROGEN 16 mg/dL (7-18); CALCIUM 8.2 mg/dL (8.5-10.1); CARBON DIOXIDE 31.4 mmol/L (21-32); CHLORIDE 104 mmol/L (98-107); COR CA(FOR HYPOALB) 9.7 mg/dL (8.5-10.1); COR NA(FOR HYPERGLY) 138 mmol/L (136-145); CREATININE 0.75 mg/dL (0.55-1.02); SODIUM 138 mmol/L (136-145); TOTAL PROTEIN 5.7 g/dL (6.4-8.2); eGFR NON BLACK RACES > 60 (>60)
[2021-05-19] MEDS: PREDNISONE TAB 10 MG PO SCH (09:39)
[2021-05-19] MEDS: LOVENOX INJ 40 MG SYR SC SCH (09:39)
[2021-05-19] MEDS: CYMBALTA PO SCH (09:39)
[2021-05-19] MEDS: TRICOR TAB 145 MG PO SCH (09:40)
[2021-05-19] MEDS: COLACE CAP 100 MG PO SCH ×2 (10:58→21:30)
[2021-05-19] MEDS: MILK OF MAGNESIA PO SCH ×2 (10:58→21:30)
--- NOTE | 2021-05-19 12:15 | PCM.PROG ---
Progress Note Progress Note for Day of Date of Exam: 05/19/21 Subjective Subjective: Patient seen at bedside, no acute events overnight. She is currently being treated for back pain due to severe lumbar stenosis in L4-L5 and severe narrowing in L5-S1. Patient states pain is well controlled today and she appears to be comfortable. She is waiting prior auth for rehab placement. Labs: WBC 12.7 Hgb 9.5 BUN/Cr: 16/0.75 Plan: continue current treatment, continue current regimen for pain control. Continue gabapentin and prednisone. Awaiting rehab placement. PT/OT as rudolph erated. Monitor AM labs and imaging. Past Medical Family Social History Past Med/Fam/Surg Hx: No changes since H&P Allergies: Allergies codeine Adverse Reaction (Verified 05/13/21 07:52) Review of Systems ROS: No change since H&P Vital Signs and I&O's Vital Signs: Temperature 97.8 F Pulse Rate [Left Brachial] 70 Pulse Rate 69 Respiratory Rate 13 Blood Pressure [Left Arm] 137/63 Blood Pressure 116/62 O2 Sat by Pulse Oximetry 90 Intake and Output: Intake & Output 05/16/21 05/17/21 05/18/21 05/19/21 23:59 23:59 23:59 23:59 Intake Total 3886 / 3886 1354 / 1354 2260 / 2260 1066 / 1066 Output Total 2475 / 2475 1200 / 1200 1260 / 1260 240 / 240 Balance 1411 / 1411 154 / 154 1000 / 1000 826 / 826 Physical Exam Oriented: Normal Eyes: Normal Ear: Normal Nose: Normal Throat: Normal Respiratory: Generalized and Diminished Cardiovascular: Normal : Normal Auscultation: Bowel Sounds: Normal Tenderness: Normal Skin: Decreased Turgur Musculoskeletal: Back:Lumbar and Motor Deficit Psychiatric: Normal Mood Description: Calm Affect: Normal Speech Pattern: Appropriate and Unclear Laboratory and Diagnostics Result Diagrams: 05/19/21 05:32 05/19/21 05:32 Labs: 05/13/21 13:03 Blood Blood Culture - Final 05/13/21 12:26 Blood Blood Culture - Final 05/13/21 13:45 Urine,Catheterized Urine Culture - Final Laboratory WBC 12.7 X10^3/uL (3.6-10.0) H 05/19/21 05:32 RBC 2.88 X10^6/uL (3.5-5.4) L 05/19/21 05:32 Hgb 9.5 g/dL (12.0-16.0) L 05/19/21 05:32 Hct 28.1 % (36.0-47.0) L 05/19/21 05:32 MCV 97.5 fL (80.0-100.0) 05/19/21 05:32 MCH 33.1 pg (27.0-34.0) 05/19/21 05:32 MCHC 34.0 g/dL (33.0-35.0) 05/19/21 05:32 RDW 13.9 % (11.6-16.5) 05/19/21 05:32 Plt Count 180 X10^3/uL (150.0-450.0) 05/19/21 05:32 Plt Count Comment Adequate (ADEQUATE) 05/16/21 07:54 MPV 9.0 fL (7.4-11.0) 05/19/21 05:32 Neut % (Auto) 84.0 % (42.0-75.0) H 05/19/21 05:32 Lymph % (Auto) 8.5 % (21.0-51.0) L 05/19/21 05:32 [place] % (Auto) 6.3 % (0.0-13.0) 05/19/21 05:32 Eos % (Auto) 0.9 % (0.9-2.9) 05/19/21 05:32 Baso % (Auto) 0.3 % (0.2-1.0) 05/19/21 05:32 Neut # (Auto) 10.7 x10^3/uL (2.2-4.8) H 05/19/21 05:32 Lymph # (Auto) 1.1 X10^3/uL (1.3-2.9) L 05/19/21 05:32 [place] # (Auto) 0.8 x10^3/uL (0.3-0.8) 05/19/21 05:32 Eos # (Auto) 0.1 x10^3/uL (0.0-0.2) 05/19/21 05:32 Baso # (Auto) 0.0 X10^3/uL (0.0-0.1) 05/19/21 05:32 Absolute Nucleated RBC 0.0 /100WBC 05/19/21 05:32 Total Counted 100 05/16/21 07:54 Neutrophils % (Manual) 81 % (39-76) H 05/16/21 07:54 Lymphocytes % (Manual) 14 % (13-43) 05/16/21 07:54 Monocytes % (Manual) 5 % (4-9) 05/16/21 07:54 Plt Morphology Comment Normal (NORMAL) 05/16/21 07:54 RBC Morphology Normal (NORMAL) 05/16/21 07:54 ESR 4 MM/HOUR (0-20) 05/14/21 05:34 Sodium 138 mmol/L (136-145) 05/19/21 05:32 Corrected Sodium 138 mmol/L (136-145) 05/19/21 05:32 Potassium 4.6 mmol/L (3.5-5.1) 05/19/21 05:32 Chloride 104 mmol/L (98-107) 05/19/21 05:32 Carbon Dioxide 31.4 mmol/L (21-32) 05/19/21 05:32 BUN 16 mg/dL (7-18) 05/19/21 05:32 Creatinine 0.75 mg/dL (0.55-1.02) 05/19/21 05:32 Est GFR (MDRD) Af Amer > 60 (>60) 05/19/21 05:32 Est GFR (MDRD) Non-Af > 60 (>60) 05/19/21 05:32 Glucose 116 mg/dL (65-99) H 05/19/21 05:32 POC Glucose (mg/dL) 93 mg/dL (65-99) 05/18/21 11:24 Uric Acid 4.9 mg/dL (2.6-6.0) 05/14/21 05:34 Calcium 8.2 mg/dL (8.5-10.1) L 05/19/21 05:32 Corrected Calcium 9.7 mg/dL (8.5-10.1) 05/19/21 05:32 Magnesium 2.9 mg/dL (1.7-2.9) 05/13/21 08:27 Iron 99 ug/dL (50-175) 05/13/21 08:27 Transferrin 291 mg/dL (202-364) 05/13/21 08:27 Ferritin 362 ng/mL (8-252) H 05/13/21 08:27 Total Bilirubin 0.20 mg/dL (0.2-1.0) 05/19/21 05:32 AST 34 Units/L (15-37) 05/19/21 05:32 ALT 42 Units/L (12-78) 05/19/21 05:32 Alkaline Phosphatase 83 Units/L (46-116) 05/19/21 05:32 Creatine Kinase 155 Units/L (26-192) 05/13/21 08:27 CK-MB (CK-2) 4.1 ng/mL (0-4.0) H 05/13/21 08:27 CK/CKMB % Calc 2.7 % (<4) 05/13/21 08:27 Troponin I < 0.02 ng/mL (0-1.5) 05/13/21 08:27 C-Reactive Protein 0.60 mg/L (0-3.0) 05/14/21 05:34 Total Protein 5.7 g/dL (6.4-8.2) L 05/19/21 05:32 Albumin 2.1 g/dL (3.4-5.0) L 05/19/21 05:32 Globulin 3.6 g/dL (2.5-4.5) 05/19/21 05:32 Albumin/Globulin Ratio 0.6 Ratio (1.1-2.1) L 05/19/21 05:32 Vitamin B12 598 pg/mL (193-986) 05/13/21 08:27 Folate 5.6 ng/mL (>8.6) L 05/13/21 08:27 Specimen Type Random urine 05/13/21 09:32 Urine Color Yellow (YELLOW) 05/13/21 09:32 Urine Appearance Clear (CLEAR) 05/13/21 09:32 Urine pH 5.0 (5.0 - 8.0) 05/13/21 09:32 Ur Specific [place] 1.015 (1.000-1.030) 05/13/21 09:32 Urine Protein 2+ (NEGATIVE) 05/13/21 09:32 Urine Glucose (UA) Negative (NEGATIVE) 05/13/21 09:32 Urine Ketones Negative (NEGATIVE) 05/13/21 09:32 Urine Occult Blood Negative (NEGATIVE) 05/13/21 09:32 Urine Nitrite Negative (NEGATIVE) 05/13/21 09:32 Urine Bilirubin Negative (NEGATIVE) 05/13/21 09:32 Urine Urobilinogen Normal (NORMAL) 05/13/21 09:32 Ur Leukocyte Esterase Negative (NEGATIVE) 05/13/21 09:32 Urine RBC 3-5 /HPF (0-3) A 05/13/21 09:32 Urine WBC 5-10 /HPF (0-5) A 05/13/21 09:32 Ur Squamous Epith Cells Numerous /HPF (NEGATIVE) 05/13/21 09:32 Ur Transition Epith Cell Few /HPF (NEGATIVE) 05/13/21 09:32 Amorphous Sediment 1+ /HPF (NEGATIVE) 05/13/21 09:32 Urine Bacteria Trace /HPF (NEGATIVE) 05/13/21 09:32 Hyaline Casts Few /LPF (NEGATIVE) 05/13/21 09:32 Granular Casts Few /LPF (NEGATIVE) 05/13/21 09:32 Ur Culture Indicated? No/not indicated 05/13/21 09:32 Rheumatoid Factor Negative (NEGATIVE) 05/14/21 05:34 SARS-CoV-2 (PCR) Negative (NEGATIVE) 05/12/21 10:23 Influenza Type A (PCR) Negative (NEGATIVE) 05/12/21 10:23 Influenza Type B (PCR) Negative (NEGATIVE) 05/12/21 10:23 RSV (PCR) Negative (NEGATIVE) 05/12/21 10:23 Plan (1) General weakness: Status: Acute (2) DDD (degenerative disc disease), lumbar: Status: Acute (3) Falls frequently: Status: Acute
[2021-05-19] MEDS: NS 1000 ML 1,000 ML IV SCH (18:54)
[2021-05-19] MEDS: ZyrTEC TAB 10 MG PO SCH (21:31)
[2021-05-20] MEDS: NS 1000 ML 1,000 ML IV SCH ×2 (04:09→16:27)
[2021-05-20] MEDS: NEURONTIN CAP 300 MG PO SCH ×3 (05:31→21:06)
[2021-05-20] MEDS: CYMBALTA PO SCH (09:27)
[2021-05-20] MEDS: TRICOR TAB 145 MG PO SCH (09:28)
[2021-05-20] MEDS: LOVENOX INJ 40 MG SYR SC SCH (09:28)
[2021-05-20] MEDS: PREDNISONE TAB 10 MG PO SCH (09:28)
[2021-05-20] MEDS: PERCOCET TAB 5/325 MG PO PRN ×2 (09:29→21:06)
[2021-05-20] MEDS: MILK OF MAGNESIA PO SCH (10:03)
[2021-05-20] MEDS: COLACE CAP 100 MG PO SCH (10:03)
[2021-05-20 10:06] VITALS: BMI 40.3
--- NOTE | 2021-05-20 10:45 | PCM.PROG ---
Progress Note Progress Note for Day of Date of Exam: 05/20/21 Subjective Subjective: Patient seen at bedside, no acute events overnight. Daughter at bedside reports patient was acting different earlier, slightly confused and trying to get out of bed. Patient is currently alert, oriented to person and place. She answers questions appropriately and able to recognize her daughter. She is currently being treated for back pain due to severe lumbar stenosis in L4-L5 and severe narrowing in L5-S1. Patient states pain is well controlled and she appears to be comfortable. She is waiting prior auth for rehab placement. Labs: WBC 12.7 Hgb 9.5 BUN/Cr: 16/0.75 Plan: Change in mentation could be related to pain medicine and prolonged admission. Continue to monitor. Patient received Percocet twice yesterday. continue current treatment, continue current regimen for pain control. Continue gabapentin and prednisone. Awaiting rehab placement. PT/OT as tolerated. Monitor AM labs and imaging. Past Medical Family Social History Past Med/Fam/Surg Hx: No changes since H&P Allergies: Allergies codeine Adverse Reaction (Verified 05/13/21 07:52) Review of Systems ROS: No change since H&P Vital Signs and I&O's Vital Signs: Temperature 98.3 F Pulse Rate [Left Brachial] 64 Pulse Rate 69 Respiratory Rate 22 Blood Pressure [Left Arm] 152/68 Blood Pressure 116/62 O2 Sat by Pulse Oximetry 94 Intake and Output: Intake & Output 05/17/21 05/18/21 05/19/21 05/20/21 23:59 23:59 23:59 23:59 Intake Total 1354 / 1354 2260 / 2260 2491 / 2491 1383 / 1383 Output Total 1200 / 1200 1260 / 1260 1515 / 1515 940 / 940 Balance 154 / 154 1000 / 1000 976 / 976 443 / 443 Physical Exam Oriented: Normal Eyes: Normal Ear: Normal Nose: Normal Throat: Normal Respiratory: Generalized and Diminished Cardiovascular: Normal Auscultation: Bowel Sounds: Normal Tenderness: Normal Skin: Decreased Turgur Musculoskeletal: Back:Lumbar and Motor Deficit Psychiatric: Normal Mood Description: Calm Affect: Normal Speech Pattern: Clear and Appropriate Laboratory and Diagnostics Result Diagrams: 05/19/21 05:32 05/19/21 05:32 Labs: 05/13/21 13:03 Blood Blood Culture - Final 05/13/21 12:26 Blood Blood Culture - Final 05/13/21 13:45 Urine,Catheterized Urine Culture - Final Laboratory WBC 12.7 X10^3/uL (3.6-10.0) H 05/19/21 05:32 RBC 2.88 X10^6/uL (3.5-5.4) L 05/19/21 05:32 Hgb 9.5 g/dL (12.0-16.0) L 05/19/21 05:32 Hct 28.1 % (36.0-47.0) L 05/19/21 05:32 MCV 97.5 fL (80.0-100.0) 05/19/21 05:32 MCH 33.1 pg (27.0-34.0) 05/19/21 05:32 MCHC 34.0 g/dL (33.0-35.0) 05/19/21 05:32 RDW 13.9 % (11.6-16.5) 05/19/21 05:32 Plt Count 180 X10^3/uL (150.0-450.0) 05/19/21 05:32 Plt Count Comment Adequate (ADEQUATE) 05/16/21 07:54 MPV 9.0 fL (7.4-11.0) 05/19/21 05:32 Neut % (Auto) 84.0 % (42.0-75.0) H 05/19/21 05:32 Lymph % (Auto) 8.5 % (21.0-51.0) L 05/19/21 05:32 [place] % (Auto) 6.3 % (0.0-13.0) 05/19/21 05:32 Eos % (Auto) 0.9 % (0.9-2.9) 05/19/21 05:32 Baso % (Auto) 0.3 % (0.2-1.0) 05/19/21 05:32 Neut # (Auto) 10.7 x10^3/uL (2.2-4.8) H 05/19/21 05:32 Lymph # (Auto) 1.1 X10^3/uL (1.3-2.9) L 05/19/21 05:32 [place] # (Auto) 0.8 x10^3/uL (0.3-0.8) 05/19/21 05:32 Eos # (Auto) 0.1 x10^3/uL (0.0-0.2) 05/19/21 05:32 Baso # (Auto) 0.0 X10^3/uL (0.0-0.1) 05/19/21 05:32 Absolute Nucleated RBC 0.0 /100WBC 05/19/21 05:32 Total Counted 100 05/16/21 07:54 Neutrophils % (Manual) 81 % (39-76) H 05/16/21 07:54 Lymphocytes % (Manual) 14 % (13-43) 05/16/21 07:54 Monocytes % (Manual) 5 % (4-9) 05/16/21 07:54 Plt Morphology Comment Normal (NORMAL) 05/16/21 07:54 RBC Morphology Normal (NORMAL) 05/16/21 07:54 ESR 4 MM/HOUR (0-20) 05/14/21 05:34 Sodium 138 mmol/L (136-145) 05/19/21 05:32 Corrected Sodium 138 mmol/L (136-145) 05/19/21 05:32 Potassium 4.6 mmol/L (3.5-5.1) 05/19/21 05:32 Chloride 104 mmol/L (98-107) 05/19/21 05:32 Carbon Dioxide 31.4 mmol/L (21-32) 05/19/21 05:32 BUN 16 mg/dL (7-18) 05/19/21 05:32 Creatinine 0.75 mg/dL (0.55-1.02) 05/19/21 05:32 Est GFR (MDRD) Af Amer > 60 (>60) 05/19/21 05:32 Est GFR (MDRD) Non-Af > 60 (>60) 05/19/21 05:32 Glucose 116 mg/dL (65-99) H 05/19/21 05:32 POC Glucose (mg/dL) 150 mg/dL (65-99) H 05/19/21 12:34 Uric Acid 4.9 mg/dL (2.6-6.0) 05/14/21 05:34 Calcium 8.2 mg/dL (8.5-10.1) L 05/19/21 05:32 Corrected Calcium 9.7 mg/dL (8.5-10.1) 05/19/21 05:32 Magnesium 2.9 mg/dL (1.7-2.9) 05/13/21 08:27 Iron 99 ug/dL (50-175) 05/13/21 08:27 Transferrin 291 mg/dL (202-364) 05/13/21 08:27 Ferritin 362 ng/mL (8-252) H 05/13/21 08:27 Total Bilirubin 0.20 mg/dL (0.2-1.0) 05/19/21 05:32 AST 34 Units/L (15-37) 05/19/21 05:32 ALT 42 Units/L (12-78) 05/19/21 05:32 Alkaline Phosphatase 83 Units/L (46-116) 05/19/21 05:32 Creatine Kinase 155 Units/L (26-192) 05/13/21 08:27 CK-MB (CK-2) 4.1 ng/mL (0-4.0) H 05/13/21 08:27 CK/CKMB % Calc 2.7 % (<4) 05/13/21 08:27 Troponin I < 0.02 ng/mL (0-1.5) 05/13/21 08:27 C-Reactive Protein 0.60 mg/L (0-3.0) 05/14/21 05:34 Total Protein 5.7 g/dL (6.4-8.2) L 05/19/21 05:32 Albumin 2.1 g/dL (3.4-5.0) L 05/19/21 05:32 Globulin 3.6 g/dL (2.5-4.5) 05/19/21 05:32 Albumin/Globulin Ratio 0.6 Ratio (1.1-2.1) L 05/19/21 05:32 Vitamin B12 598 pg/mL (193-986) 05/13/21 08:27 Folate 5.6 ng/mL (>8.6) L 05/13/21 08:27 Specimen Type Random urine 05/13/21 09:32 Urine Color Yellow (YELLOW) 05/13/21 09:32 Urine Appearance Clear (CLEAR) 05/13/21 09:32 Urine pH 5.0 (5.0 - 8.0) 05/13/21 09:32 Ur Specific [place] 1.015 (1.000-1.030) 05/13/21 09:32 Urine Protein 2+ (NEGATIVE) 05/13/21 09:32 Urine Glucose (UA) Negative (NEGATIVE) 05/13/21 09:32 Urine Ketones Negative (NEGATIVE) 05/13/21 09:32 Urine Occult Blood Negative (NEGATIVE) 05/13/21 09:32 Urine Nitrite Negative (NEGATIVE) 05/13/21 09:32 Urine Bilirubin Negative (NEGATIVE) 05/13/21 09:32 Urine Urobilinogen Normal (NORMAL) 05/13/21 09:32 Ur Leukocyte Esterase Negative (NEGATIVE) 05/13/21 09:32 Urine RBC 3-5 /HPF (0-3) A 05/13/21 09:32 Urine WBC 5-10 /HPF (0-5) A 05/13/21 09:32 Ur Squamous Epith Cells Numerous /HPF (NEGATIVE) 05/13/21 09:32 Ur Transition Epith Cell Few /HPF (NEGATIVE) 05/13/21 09:32 Amorphous Sediment 1+ /HPF (NEGATIVE) 05/13/21 09:32 Urine Bacteria Trace /HPF (NEGATIVE) 05/13/21 09:32 Hyaline Casts Few /LPF (NEGATIVE) 05/13/21 09:32 Granular Casts Few /LPF (NEGATIVE) 05/13/21 09:32 Ur Culture Indicated? No/not indicated 05/13/21 09:32 Rheumatoid Factor Negative (NEGATIVE) 05/14/21 05:34 SARS-CoV-2 (PCR) Negative (NEGATIVE) 05/12/21 10:23 Influenza Type A (PCR) Negative (NEGATIVE) 05/12/21 10:23 Influenza Type B (PCR) Negative (NEGATIVE) 05/12/21 10:23 RSV (PCR) Negative (NEGATIVE) 05/12/21 10:23 Plan (1) General weakness: Status: Acute Plan: ADMIT, GENTLE IV HYDRATION STRICT I&S EKG AND CXR ON ADMISSION, BLOOD AND URINE CULTURE ON ADMISSION VERIFY HOME MEDICATION, IV ROCEPHIN. BP AND CARDIAC MONITORING (2) DDD (degenerative disc disease), lumbar: Status: Acute (3) Falls frequently: Status: Acute
[2021-05-20] MEDS: ZyrTEC TAB 10 MG PO SCH (21:06)
[2021-05-21] MEDS: NEURONTIN CAP 300 MG PO SCH ×2 (05:31→13:23)
[2021-05-21] MEDS: NS 1000 ML 1,000 ML IV SCH (05:32)
[2021-05-21] MEDS: PERCOCET TAB 5/325 MG PO PRN ×2 (06:41→13:23)
[2021-05-21 07:24] LABS: BASOPHILS % (AUTO) 0.2 % (0.2-1.0); BLOOD UREA NITROGEN 13 mg/dL (7-18); CALCIUM 8.5 mg/dL (8.5-10.1); CARBON DIOXIDE 32.3 mmol/L (21-32); CHLORIDE 103 mmol/L (98-107); CREATININE 0.67 mg/dL (0.55-1.02); EOSINOPHILS # (AUTO) 0.1 x10^3/uL (0.0-0.2); EOSINOPHILS % (AUTO) 1.6 % (0.9-2.9); HEMATOCRIT 28.8 % (36.0-47.0); LYMPHOCYTES # (AUTO) 1.4 X10^3/uL (1.3-2.9); MEAN CORPUSCULAR HEMOGLOBIN 33.3 pg (27.0-34.0); MEAN CORPUSCULAR HGB CONC 34.8 g/dL (33.0-35.0); MEAN CORPUSCULAR VOLUME 95.5 fL (80.0-100.0); MONOCYTES # (AUTO) 0.8 x10^3/uL (0.3-0.8); MONOCYTES % (AUTO) 8.9 % (0.0-13.0); NEUTROPHILS # (AUTO) 6.4 x10^3/uL (2.2-4.8); NEUTROPHILS % (AUTO) 73.3 % (42.0-75.0); PLATELET COUNT 267 X10^3/uL (150.0-450.0); RED BLOOD COUNT 3.02 X10^6/uL (3.5-5.4); RED CELL DISTRIBUTION WIDTH 13.6 % (11.6-16.5); SODIUM 139 mmol/L (136-145); WHITE BLOOD COUNT 8.8 X10^3/uL (3.6-10.0); eGFR NON BLACK RACES > 60 (>60)
[2021-05-21 08:18] LABS: PLATELET MORPHOLOGY COMMENT NORMAL (NORMAL)
[2021-05-21] MEDS: CYMBALTA PO SCH (08:43)
[2021-05-21] MEDS: LOVENOX INJ 40 MG SYR SC SCH (08:43)
[2021-05-21] MEDS: PREDNISONE TAB 10 MG PO SCH (08:43)
[2021-05-21] MEDS: TRICOR TAB 145 MG PO SCH (08:44)
[2021-05-21 12:37] VITALS: BP 145/63
== END 2021-05-21 14:35 ==
LOC: OBS 07:40 → ER 07:40 → MED/SURG 07:40 → OBS 11:42
PROVIDERS: ADMIT Internal Medicine; ATTEND Internal Medicine
DX: M25.552 Pain in left hip; J44.9 Chronic obstructive pulmonary disease, unspecified; K59.09 Other constipation; M51.06 Intervertebral disc disorders with myelopathy, lumbar region; N39.0 Urinary tract infection, site not specified; R53.1 Weakness; R29.6 Repeated falls; M48.061 Spinal stenosis, lumbar region without neurogenic claudication

== ENCOUNTER 2021-07-08 12:52 | Observation (INO) ==
[2021-07-08 13:04] VITALS: BMI 36.6
[2021-07-08] MEDS ORDERED: ZOFRAN INJ 4 MG VIAL IVP ONE (13:15)
--- NOTE | 2021-07-08 13:17 | DR.NAUSEAF ---
HPI Time Seen Time Seen by Provider: 07/08/21 13:10 HPI Comment HPI Comment: PATIENT IS 80YR OLD FEMALE IN ER WITH 8/10 ABDOMINAL PAIN, VOMITING AND WEAKNESS TIMES FEW DAYS. PATIENT GETTING WORSE. NOT HOLDING DOWN FOOD OR MEDICATIONS OR LIQUID. DENIES FEVER OR DIARRHEA. HERE VIA AMBULANCE. Complaints Chief Complaint Doctors Comments: ABDOMINAL PAIN, NAUSEA, VOMITING AND WEAKNESS. COVID-19 Coronavirus risk:travel/contact w/high risk person: No Has patient experienced Coronavirus symptoms: No Reviewed Nurses Notes Reviewed: Yes Source History Provided: Patient and EMS Mode of Arrival Mode of Arrival: EMS Timing Onset of Chief Complaint: 07/08/21 Duration Duration: ABD Context Onset: Spontaneous Recent: None History of: Diabetes Quality Quality: Food Particles Associated Signs and Symptoms Abdominal Pain Quality: Cramping and Sharp Abdominal Pain Location: Diffuse Symptoms: Abdominal Pain PMH PMH Past Medical History: Yes Past Medical History: Asthma, CHF and Dementia Past Surgical History: Yes Surgical History: Unknown Family History History of Family Medical Conditions: Yes Family Medical History: PR Social History Do you use any recreational Drugs:: No Travel Risk Coronavirus risk:travel/contact w/high risk person: No Has patient experienced Coronavirus symptoms: No Infectious screening In the last 2 months have you had wt loss of >10#?: NO Have you had fever, night sweats or hemotysis?: No Have you traveled outside the country in the last 6 months?: No Isolation: Standard ROS Review of Systems Constitutional: See HPI, Weakness and Fatigue; negative Fever Eyes: No Symptoms Reported and See HPI ENTM: No Symptoms Reported and See HPI; negative Nose Discharge and Nose Congestion Respiratoy: No Symptoms Reported and See HPI; negative Moist Cough, Short of Breath and Wheezing Cardiovascular: No Symptoms Reported and See HPI; negative Chest Pain Gastrointestinal/Abdominal: No Symptoms Reported, See HPI, Abdominal Pain, Nausea and Vomiting; negative Diarrhea Genitourinary: No Symptoms Reported, See HPI and Hematuria; negative Dysuria Neurological: See HPI and Weakness; negative Headache and Dizziness Musculoskeletal: No Symptoms Reported, See HPI and Muscle Pain; negative Back Pain Integumentary: No Symptoms Reported and See HPI; negative Change in Color, Rash and Juandice Hematologic/Lymphatic: No Symptoms Reported and See HPI; negative Easy Bruising Endocrine: No Symptoms Reported and See HPI; negative Increased Thirst and Increased Urine Psychiatric: No Symptoms Reported and See HPI All Other Systems: Reviewed and Negative PE Vital Signs Vitals: Temperature 97.8 F Pulse Rate 83 Respiratory Rate 18 Blood Pressure [Left Arm] 115/78 Blood Pressure 109/64 O2 Sat by Pulse Oximetry 96 General General Appearance: Alert and In No Apparent Distress Head Head Exam: Normal Inspection Eyes Eye exam: Normal Appearance; negative Scleral Icterus and Conjunctival Injection ENT ENT Exam: Normal Exam, Normal Oropharynx, Normal External Ear Exam and TM's Normal Bilaterally Neck Neck Exam: Normal Inspection and Trachea Midline; negative Tenderness and Lymphadenopathy Chest Chest Inspection: Symmetric Chest Wall Rise; negative Tenderness Respiratory Respiratory Exam: negative Accessory Muscle Use, Chest Wall Tenderness and Respiratory Distress Respiratory Exam: Bilateral: Rhonchi and Lower: Rhonchi Cardiovascular Cardiovascular Exam: Regular Rate, Normal Rhythm and Normal Heart Sounds; negative Systolic Murmur and Diastolic Murmur Abdominal Exam Abdominal Exam: Normal Bowel Sounds, Soft and Tenderness Abdominal Tenderness: Diffuse and Moderate Rectal Rectal Exam: Deferred External Exam: Female: Deferred : Speculum Exam (Female): Deferred : Bimanual Exam (female): Deferred Extremities Extremities Exam: Normal Inspection and Normal Capillary Refill Back Back Exam: Normal Inspection; negative (R) CVA Tenderness and (L) CVA Tenderness Neurologic Neurological Exam: Alert Psychiatric Psychiatric Exam: Normal Affect and Normal Mood Skin Skin Exam: Dry MDM Differential Diagnosis Differential Diagnosis: Considerations may Include:: Bowel Obstruction, Chol ecystitis, Gastroenteritis, Inflammatory BD, Pancreatitis, PUD, Urinary Tract Infection and Urolithiasis COURSE Treatment Treatment: SEE ORDERS. NS 1L IV BOLUS, ZOFRAN 4MG IV AND NS 1L PLUS 20MEQ AT 125CC/HR. Consultation Consultation Comments: DISCUSSED PATIENT WITH DR. LIPSCOMB. HE WILL ADMIT PATIENT. Education/Counseling Education/Counseling: Patient and Family Educated On: Diagnosis ROR Labs Reviewed Laboratory Results Reviewed?: Yes Result Diagrams: 07/08/21 13:55 07/08/21 13:55 Laboratory: WBC 6.2 X10^3/uL (3.6-10.0) 07/08/21 13:55 RBC 4.18 X10^6/uL (3.5-5.4) 07/08/21 13:55 Hgb 13.5 g/dL (12.0-16.0) 07/08/21 13:55 Hct 39.5 % (36.0-47.0) 07/08/21 13:55 MCV 94.5 fL (80.0-100.0) 07/08/21 13:55 MCH 32.2 pg (27.0-34.0) 07/08/21 13:55 MCHC 34.1 g/dL (33.0-35.0) 07/08/21 13:55 RDW 15.4 % (11.6-16.5) 07/08/21 13:55 Plt Count 215 X10^3/uL (150.0-450.0) 07/08/21 13:55 Plt Count Comment Adequate (ADEQUATE) 07/08/21 13:55 MPV 8.8 fL (7.4-11.0) 07/08/21 13:55 Neut % (Auto) 62.0 % (42.0-75.0) 07/08/21 13:55 Lymph % (Auto) 29.5 % (21.0-51.0) 07/08/21 13:55 [place] % (Auto) 7.0 % (0.0-13.0) 07/08/21 13:55 Eos % (Auto) 0.8 % (0.9-2.9) L 07/08/21 13:55 Baso % (Auto) 0.7 % (0.2-1.0) 07/08/21 13:55 Neut # (Auto) 3.9 x10^3/uL (2.2-4.8) 07/08/21 13:55 Lymph # (Auto) 1.8 X10^3/uL (1.3-2.9) 07/08/21 13:55 [place] # (Auto) 0.4 x10^3/uL (0.3-0.8) 07/08/21 13:55 Eos # (Auto) 0.1 x10^3/uL (0.0-0.2) 07/08/21 13:55 Baso # (Auto) 0.0 X10^3/uL (0.0-0.1) 07/08/21 13:55 Absolute Nucleated RBC 0.5 /100WBC 07/08/21 13:55 Plt Clumps, EDTA Rare 07/08/21 13:55 Plt Morphology Comment Normal (NORMAL) 07/08/21 13:55 RBC Morphology Normal (NORMAL) 07/08/21 13:55 Sodium 135 mmol/L (136-145) L 07/08/21 13:55 Corrected Sodium TNP 07/08/21 13:55 Potassium 3.0 mmol/L (3.5-5.1) L* 07/08/21 13:55 Chloride 98 mmol/L (98-107) 07/08/21 13:55 Carbon Dioxide 27.9 mmol/L (21-32) 07/08/21 13:55 BUN 13 mg/dL (7-18) 07/08/21 13:55 Creatinine 0.73 mg/dL (0.55-1.02) 07/08/21 13:55 Est GFR (MDRD) Af Amer > 60 (>60) 07/08/21 13:55 Est GFR (MDRD) Non-Af > 60 (>60) 07/08/21 13:55 Glucose 87 mg/dL (65-99) 07/08/21 13:55 Calcium 8.8 mg/dL (8.5-10.1) 07/08/21 13:55 Corrected Calcium 9.8 mg/dL (8.5-10.1) 07/08/21 13:55 Total Bilirubin 0.80 mg/dL (0.2-1.0) 07/08/21 13:55 AST 38 Units/L (15-37) H 07/08/21 13:55 ALT 25 Units/L (12-78) 07/08/21 13:55 Alkaline Phosphatase 87 Units/L (46-116) 07/08/21 13:55 Creatine Kinase 32 Units/L (26-192) 07/08/21 13:55 CK-MB (CK-2) 1.7 ng/mL (0-4.0) 07/08/21 13:55 CK/CKMB % Calc 5.3 % (<4) 07/08/21 13:55 Troponin I < 0.02 ng/mL (0-1.5) 07/08/21 13:55 Total Protein 6.4 g/dL (6.4-8.2) 07/08/21 13:55 Albumin 2.7 g/dL (3.4-5.0) L 07/08/21 13:55 Globulin 3.7 g/dL (2.5-4.5) 07/08/21 13:55 Albumin/Globulin Ratio 0.7 Ratio (1.1-2.1) L 07/08/21 13:55 Amylase 52 Units/L (25-115) 07/08/21 13:55 Lipase 257 Units/L (73-393) 07/08/21 13:55 SARS CoV-2 RNA Rapid MARLENI Negative (NEGATIVE) 07/08/21 17:05 XRAY XRAY Interpreted by: Radiologist (REPORT NOTED AND DISCUSSED WITH PATIENT.) and Self EKG Rate: 84 [place]: Normal Rhythm: NSR Block: IVCD Hypertrophy: None ST: Nonsp Opioid Opioid Risk Tool Age (Negrito box if 16-45): No History of Preadolescent Sexual Abuse: No Total: 0 Total Score Risk Category: Low Risk Copyright: Víctor INGRAM predicting aberrant behaviors Diagnosis Discharge Problem: Generalized weakness, Dehydration, Hypokalemia Abdominal pain Qualifiers: Abdominal location: generalized Qualified Code(s): R10.84 - Generalized abdo jaguar pain Nausea and vomiting Qualifiers: Vomiting type: unspecified Vomiting Intractability: non-intractable Qualified Code(s): R11.2 - Nausea with vomiting, unspecified Instructions Forms: Precautions for COVID19 [facility] Social Distancing
[2021-07-08] MEDS ORDERED: NS 1000 ML 1,000 ML ONE (13:27)
[2021-07-08] MEDS ORDERED: ZOFRAN INJ 4 MG VIAL ONE ×2 (13:27→20:00)
[2021-07-08] MEDS ORDERED: NS 1000 ML 1,000 ML IV SCH (14:00)
[2021-07-08 14:18] LABS: ALANINE AMINOTRANSFERASE 25 Units/L (12-78); ALBUMIN 2.7 g/dL (3.4-5.0); ALKALINE PHOSPHATASE 87 Units/L (46-116); AMYLASE 52 Units/L (25-115); ASPARTATE AMINO TRANSFERASE 38 Units/L (15-37); BLOOD UREA NITROGEN 13 mg/dL (7-18); CALCIUM 8.8 mg/dL (8.5-10.1); CARBON DIOXIDE 27.9 mmol/L (21-32); CHLORIDE 98 mmol/L (98-107); COR CA(FOR HYPOALB) 9.8 mg/dL (8.5-10.1); CREATININE 0.73 mg/dL (0.55-1.02); LIPASE 257 Units/L (73-393); SODIUM 135 mmol/L (136-145); TOTAL PROTEIN 6.4 g/dL (6.4-8.2); eGFR NON BLACK RACES > 60 (>60)
--- NOTE | 2021-07-08 14:29 | CT ---
HISTORYPT C/O ABDOMINAL PAINSTUDYCT abdomen pelvis without IV contrastCOMPARISONCT 07/06/2021TECHNIQUEMultiple axial images of the abdomen and pelvis were obtained from the lung bases to the pubic symphysis without the administration of IV contrast. Dose reduction techniques including Automated Exposure Control (AEC) and adjustment of mA and kV were utilized.FINDINGSThe visualized portions of the lung bases suggest mild atelectasis. There is a ground-glass nodule in the right lower lobe measuring 7.0 mm. This was present previously.The liver and spleen display no abnormalities.Prior cholecystectomy. No biliary ductal dilation.No pancreatic abnormality is seen.The adrenal glands appear normal.Simple cyst in the right kidney measures 2.5 cm. Tiny vascular calcifications are seen in the renal pablo. No nephrolithiasis or hydronephrosis. Ureters and bladder appear normal.Phleboliths are seen in the pelvis. There is very mild hazy edema suggested adjacent to the left side of the vagina in the 1-2 o'[address] position of the CT image. This area is not included previously but there is a somewhat similar appearance on CT pelvis of 05/15/2021. Small perirectal fistula extending adjacent to the vagina or vaginal tear would be possible etiologies.Prior right sided ileocolonic anastomosis. In the distal ascending colon and transverse colon there is questionable wall thickening that is slightly greater than prior study. This may be due to underdistention but this may be mild colitis. A few left-sided colonic diverticula are seen without evidence of diverticulitis. Small hiatus hernia is similar to prior study. Mild constipation in the rectum.Abdominal aorta is normal in size.Likely reactive periportal lymph nodes are seen.No free intraperitoneal air or fluid is seen.Prominent lumbar spondylosis.IMPRESSIONPossible mild colitis in the distal ascending colon and transverse colon. Appearance may be artifactual, though.There is mild constipation in the rectum, similar to prior study.Small amount of hazy edema is seen to the left the vagina that could possibly be a vaginal tear or perirectal fistula. A similar appearance is seen in April.There is a 7.0 mm ground-glass nodule in the right lower lobe of the lungs. Consider further evaluation with CT of the chest to assess for any other lung nodules.Electronically signed by: Santy Todd (Jul 08, 2021 14:27:23)
[2021-07-08 14:32] LABS: BASOPHILS % (AUTO) 0.7 % (0.2-1.0); EOSINOPHILS # (AUTO) 0.1 x10^3/uL (0.0-0.2); EOSINOPHILS % (AUTO) 0.8 % (0.9-2.9); HEMATOCRIT 39.5 % (36.0-47.0); HEMOGLOBIN 13.5 g/dL (12.0-16.0); LYMPHOCYTES # (AUTO) 1.8 X10^3/uL (1.3-2.9); LYMPHOCYTES % (AUTO) 29.5 % (21.0-51.0); MEAN CORPUSCULAR HEMOGLOBIN 32.2 pg (27.0-34.0); MEAN CORPUSCULAR HGB CONC 34.1 g/dL (33.0-35.0); MEAN CORPUSCULAR VOLUME 94.5 fL (80.0-100.0); MEAN PLATELET VOLUME 8.8 fL (7.4-11.0); MONOCYTES # (AUTO) 0.4 x10^3/uL (0.3-0.8); NEUTROPHILS # (AUTO) 3.9 x10^3/uL (2.2-4.8); PLATELET COUNT 215 X10^3/uL (150.0-450.0); RED BLOOD COUNT 4.18 X10^6/uL (3.5-5.4); RED CELL DISTRIBUTION WIDTH 15.4 % (11.6-16.5); WHITE BLOOD COUNT 6.2 X10^3/uL (3.6-10.0)
[2021-07-08 15:14] LABS: PLATELET MORPHOLOGY COMMENT NORMAL (NORMAL)
[2021-07-08 15:18] LABS: CKMB % 5.3 % (<4); CREATINE KINASE 32 Units/L (26-192); CREATINE KINASE MB 1.7 ng/mL (0-4.0); TROPONIN I < 0.02 ng/mL (0-1.5)
[2021-07-08] MEDS ORDERED: TYLENOL 325 MG TAB PO PRN (19:58)
[2021-07-08] MEDS: ZOFRAN INJ 4 MG VIAL IVP PRN (20:00)
[2021-07-08] MEDS: NS + KCL 20 MEQ/L 1,000 ML IV SCH (20:25)
[2021-07-09] MEDS: ZOFRAN INJ 4 MG VIAL IVP PRN ×2 (03:50→14:03)
[2021-07-09 04:31] LABS: BILIRUBIN,URINE 1+ (NEGATIVE); BLOOD/HEMOGLOBIN,URINE 4+ (NEGATIVE); GLUCOSE, URINE NEGATIVE (NEGATIVE); KETONES,URINE 3+ (NEGATIVE); LEUKOCYTE ESTERASE ,URINE 1+ (NEGATIVE); NITRITES,URINE POSITIVE (NEGATIVE); PROTEIN,URINE 2+ (NEGATIVE); UROBILINOGEN,URINE 2+ (NORMAL)
[2021-07-09 04:36] LABS: COLOR,URINE YELLOW (YELLOW)
[2021-07-09 04:37] LABS: AMORPHOUS SEDIMENT,UR 2+ /HPF (NEGATIVE); APPEARANCE,URINE CLOUDY (CLEAR); BACTERIA,URINE 3+ /HPF (NEGATIVE); RBC,URINE NONE SEEN /HPF (0-3); SQUAMOUS EPITHELIAL CELL,UR MODERATE /HPF (NEGATIVE)
[2021-07-09] MEDS ORDERED: NS + KCL 20 MEQ/L 1,000 ML IV ONE (04:39)
[2021-07-09] MEDS: NS + KCL 20 MEQ/L 1,000 ML IV SCH ×4 (04:40→21:30)
[2021-07-09 05:36] LABS: BASOPHILS % (AUTO) 0.4 % (0.2-1.0); EOSINOPHILS # (AUTO) 0.1 x10^3/uL (0.0-0.2); HEMOGLOBIN 11.6 g/dL (12.0-16.0); LYMPHOCYTES # (AUTO) 1.4 X10^3/uL (1.3-2.9); LYMPHOCYTES % (AUTO) 26.4 % (21.0-51.0); MEAN CORPUSCULAR HEMOGLOBIN 32.3 pg (27.0-34.0); MEAN PLATELET VOLUME 8.5 fL (7.4-11.0); MONOCYTES # (AUTO) 0.4 x10^3/uL (0.3-0.8); MONOCYTES % (AUTO) 7.4 % (0.0-13.0); NEUTROPHILS # (AUTO) 3.4 x10^3/uL (2.2-4.8); NEUTROPHILS % (AUTO) 64.8 % (42.0-75.0); PLATELET COUNT 173 X10^3/uL (150.0-450.0); RED BLOOD COUNT 3.58 X10^6/uL (3.5-5.4); RED CELL DISTRIBUTION WIDTH 15.4 % (11.6-16.5); WHITE BLOOD COUNT 5.3 X10^3/uL (3.6-10.0)
[2021-07-09 05:43] LABS: ALANINE AMINOTRANSFERASE 22 Units/L (12-78); ALBUMIN 2.1 g/dL (3.4-5.0); ALKALINE PHOSPHATASE 69 Units/L (46-116); AMYLASE 49 Units/L (25-115); ASPARTATE AMINO TRANSFERASE 33 Units/L (15-37); BLOOD UREA NITROGEN 13 mg/dL (7-18); CALCIUM 7.7 mg/dL (8.5-10.1); CARBON DIOXIDE 23.7 mmol/L (21-32); CHLORIDE 103 mmol/L (98-107); COR CA(FOR HYPOALB) 9.2 mg/dL (8.5-10.1); CREATININE 0.64 mg/dL (0.55-1.02); LIPASE 235 Units/L (73-393); SODIUM 138 mmol/L (136-145); TOTAL PROTEIN 5.2 g/dL (6.4-8.2); eGFR NON BLACK RACES > 60 (>60)
[2021-07-09] MEDS ORDERED: PERCOCET TAB 5/325 MG PO PRN (08:26)
[2021-07-09] MEDS: CIPRO IV 400 MG PREMIX* 400 MG/200 ML IV.SOLN. IV SCH ×2 (09:23→21:20)
[2021-07-09] MEDS: LOVENOX INJ 40 MG SYR SC SCH (15:12)
[2021-07-09] MEDS: CULTURELLE PRO-WELL PROBIOTIC CAP PO SCH (18:28)
[2021-07-09] MEDS: K-DUR TAB 20 MEQ PO SCH (18:28)
[2021-07-10 06:46] LABS: EOSINOPHILS # (AUTO) 0.1 x10^3/uL (0.0-0.2); EOSINOPHILS % (AUTO) 1.9 % (0.9-2.9); HEMOGLOBIN 11.1 g/dL (12.0-16.0); LYMPHOCYTES # (AUTO) 1.1 X10^3/uL (1.3-2.9); LYMPHOCYTES % (AUTO) 27.8 % (21.0-51.0); MEAN CORPUSCULAR HEMOGLOBIN 32.2 pg (27.0-34.0); MEAN CORPUSCULAR HGB CONC 33.8 g/dL (33.0-35.0); MEAN CORPUSCULAR VOLUME 95.2 fL (80.0-100.0); MEAN PLATELET VOLUME 8.9 fL (7.4-11.0); MONOCYTES # (AUTO) 0.4 x10^3/uL (0.3-0.8); MONOCYTES % (AUTO) 8.8 % (0.0-13.0); NEUTROPHILS # (AUTO) 2.5 x10^3/uL (2.2-4.8); NEUTROPHILS % (AUTO) 60.5 % (42.0-75.0); PLATELET COUNT 173 X10^3/uL (150.0-450.0); RED BLOOD COUNT 3.47 X10^6/uL (3.5-5.4); RED CELL DISTRIBUTION WIDTH 15.6 % (11.6-16.5); WHITE BLOOD COUNT 4.1 X10^3/uL (3.6-10.0)
[2021-07-10 07:07] LABS: ALANINE AMINOTRANSFERASE 21 Units/L (12-78); ALKALINE PHOSPHATASE 66 Units/L (46-116); ASPARTATE AMINO TRANSFERASE 33 Units/L (15-37); BLOOD UREA NITROGEN 10 mg/dL (7-18); CALCIUM 7.7 mg/dL (8.5-10.1); CHLORIDE 105 mmol/L (98-107); COR CA(FOR HYPOALB) 9.3 mg/dL (8.5-10.1); CREATININE 0.59 mg/dL (0.55-1.02); SODIUM 137 mmol/L (136-145); eGFR NON BLACK RACES > 60 (>60)
[2021-07-10] MEDS: ZOFRAN INJ 4 MG VIAL IVP PRN ×3 (08:00→21:01)
[2021-07-10] MEDS: NS + KCL 20 MEQ/L 1,000 ML IV SCH ×3 (08:07→12:11)
[2021-07-10] MEDS: CIPRO IV 400 MG PREMIX* 400 MG/200 ML IV.SOLN. IV SCH ×3 (08:08→22:35)
[2021-07-10] MEDS: K-DUR TAB 20 MEQ PO SCH (08:08)
[2021-07-10] MEDS: CULTURELLE PRO-WELL PROBIOTIC CAP PO SCH ×2 (08:08→09:40)
[2021-07-10] MEDS: LOVENOX INJ 40 MG SYR SC SCH (08:08)
[2021-07-10] MEDS: CYMBALTA PO SCH (09:40)
[2021-07-10] MEDS: PEPCID 20 MG IV PREMIX* 20 MG/50 ML BAG IV PRN (10:03)
[2021-07-10] MEDS ORDERED: COLACE CAP 100 MG PO PRN (21:10)
[2021-07-10] MEDS ORDERED: MILK OF MAGNESIA PO PRN (21:10)
[2021-07-11] MEDS: ZOFRAN INJ 4 MG VIAL IVP PRN
[2021-07-11] MEDS: PEPCID 20 MG IV PREMIX* 20 MG/50 ML BAG IV PRN (00:04)
[2021-07-11] MEDS: NS + KCL 20 MEQ/L 1,000 ML IV SCH ×3 (04:23→11:57)
[2021-07-11] MEDS ORDERED: PHENERGAN INJ 25 MG IM PRN (08:44)
[2021-07-11] MEDS: CIPRO IV 400 MG PREMIX* 400 MG/200 ML IV.SOLN. IV SCH ×2 (09:44→20:39)
[2021-07-11] MEDS: FLAGYL IV PREMIX 500 MG BAG 500 MG/100 ML BAG IV SCH ×3 (09:45→21:30)
[2021-07-11] MEDS: K-DUR TAB 20 MEQ PO SCH (09:45)
[2021-07-11] MEDS: CYMBALTA PO SCH (09:45)
[2021-07-11] MEDS: LOVENOX INJ 40 MG SYR SC SCH (09:53)
[2021-07-11] MEDS: CULTURELLE PRO-WELL PROBIOTIC CAP PO SCH (10:49)
[2021-07-11] MEDS ORDERED: FLAGYL IV PREMIX 500 MG BAG 500 MG/100 ML BAG IV ONE (13:57)
--- NOTE | 2021-07-11 18:05 | PCM.PROG ---
Progress Note - Progress Note for Day of Date of Exam: 07/10/21 - Subjective Subjective: The patient is an 80-year-old white female who was an emergency room admission with acute dehydration, colitis, and hyponatremia. The patient has been having abdominal pain, nausea and vomiting, and diarrhea for over two weeks. Her CT scan of the abdomen and pelvis showed colitis in the distending colon as well as edema in the vaginal area suspicious for perirectal fistula. The patient had stool studies ordered. Her potassium was at 3.5 this morning and she is on potassium replacement therapy and I think this is more related to her diarrhea. She did have a urine obtained and was positive for a urinary tract infection and she had a culture also ordered. The patients stool studies have been uncollected. She is currently on Cipro, 500 mg two times a day and we will adjust her antibiotics based off of her preliminary urine cultures as well as her stool studies. We are going to add a Probiotic also. The patient has been pretty much bed bound for over a month due to lumbar spine degenerative disc disease that was causing nerve impingement and lower extremity weakness with a history of multiple falls. She has pretty much been bed bound. She currently has Home Health and a hospital bed at home. - Past Medical Family Social History Past Med/Fam/Surg Hx: No changes since H&P Allergies: Allergies codeine Adverse Reaction (Verified 05/13/21 07:52) - Review of Systems ROS: No change since H&P - Vital Signs and I&O's Vital Signs: Temperature 98.1 F Pulse Rate [Left Radial] 90 Pulse Rate 82 Respiratory Rate 20 Blood Pressure [Left Arm] 127/63 Blood Pressure 108/64 O2 Sat by Pulse Oximetry 93 Intake and Output: Intake & Output 07/09/21 07/10/21 07/11/21 07/12/21 11:59 11:59 11:59 11:59 Intake Total 1350 / 1350 1953 / 1953 2823 / 2823 550 / 550 Output Total 600 / 600 Balance 1350 / 1350 1353 / 1353 2823 / 2823 550 / 550 - Physical Exam Oriented: Person Eyes: Normal Ear: Normal Nose: Normal Throat: Normal Respiratory: Diminished Cardiovascular: Normal, Edema : Normal Auscultation: Bowel Sounds: Increased Tenderness: LLQ, Epigastric Skin: Decreased Turgur Musculoskeletal: Right, Left, Back:Thoracic, Back:Lumbar, Motor Deficit, Sensory Deficit Psychiatric: Anxiety Affect: Anxious Speech Pattern: Clear, Appropriate - Laboratory and Diagnostics Result Diagrams: 07/10/21 05:45 07/10/21 05:45 Labs: 07/11/21 15:20 Stool - Final 07/09/21 04:01 Urine,Catheterized Urine Culture - Final Escherichia Coli Laboratory WBC 4.1 X10^3/uL (3.6-10.0) 07/10/21 05:45 RBC 3.47 X10^6/uL (3.5-5.4) L 07/10/21 05:45 Hgb 11.1 g/dL (12.0-16.0) L 07/10/21 05:45 Hct 33.0 % (36.0-47.0) L 07/10/21 05:45 MCV 95.2 fL (80.0-100.0) 07/10/21 05:45 MCH 32.2 pg (27.0-34.0) 07/10/21 05:45 MCHC 33.8 g/dL (33.0-35.0) 07/10/21 05:45 RDW 15.6 % (11.6-16.5) 07/10/21 05:45 Plt Count 173 X10^3/uL (150.0-450.0) 07/10/21 05:45 Plt Count Comment Adequate (ADEQUATE) 07/08/21 13:55 MPV 8.9 fL (7.4-11.0) 07/10/21 05:45 Neut % (Auto) 60.5 % (42.0-75.0) 07/10/21 05:45 Lymph % (Auto) 27.8 % (21.0-51.0) 07/10/21 05:45 [place] % (Auto) 8.8 % (0.0-13.0) 07/10/21 05:45 Eos % (Auto) 1.9 % (0.9-2.9) 07/10/21 05:45 Baso % (Auto) 1.0 % (0.2-1.0) 07/10/21 05:45 Neut # (Auto) 2.5 x10^3/uL (2.2-4.8) 07/10/21 05:45 Lymph # (Auto) 1.1 X10^3/uL (1.3-2.9) L 07/10/21 05:45 [place] # (Auto) 0.4 x10^3/uL (0.3-0.8) 07/10/21 05:45 Eos # (Auto) 0.1 x10^3/uL (0.0-0.2) 07/10/21 05:45 Baso # (Auto) 0.0 X10^3/uL (0.0-0.1) 07/10/21 05:45 Absolute Nucleated RBC 0.1 /100WBC 07/10/21 05:45 Plt Clumps, EDTA Rare 07/08/21 13:55 Plt Morphology Comment Normal (NORMAL) 07/08/21 13:55 RBC Morphology Normal (NORMAL) 07/08/21 13:55 Sodium 137 mmol/L (136-145) 07/10/21 05:45 Corrected Sodium TNP 07/10/21 05:45 Potassium 3.5 mmol/L (3.5-5.1) 07/10/21 05:45 Chloride 105 mmol/L (98-107) 07/10/21 05:45 Carbon Dioxide 24.0 mmol/L (21-32) 07/10/21 05:45 BUN 10 mg/dL (7-18) 07/10/21 05:45 Creatinine 0.59 mg/dL (0.55-1.02) 07/10/21 05:45 Est GFR (MDRD) Af Amer > 60 (>60) 07/10/21 05:45 Est GFR (MDRD) Non-Af > 60 (>60) 07/10/21 05:45 Glucose 84 mg/dL (65-99) 07/10/21 05:45 Calcium 7.7 mg/dL (8.5-10.1) L 07/10/21 05:45 Corrected Calcium 9.3 mg/dL (8.5-10.1) 07/10/21 05:45 Magnesium 1.8 mg/dL (1.7-2.9) 07/09/21 05:11 Total Bilirubin 0.50 mg/dL (0.2-1.0) 07/10/21 05:45 AST 33 Units/L (15-37) 07/10/21 05:45 ALT 21 Units/L (12-78) 07/10/21 05:45 Alkaline Phosphatase 66 Units/L (46-116) 07/10/21 05:45 Creatine Kinase 32 Units/L (26-192) 07/08/21 13:55 CK-MB (CK-2) 1.7 ng/mL (0-4.0) 07/08/21 13:55 CK/CKMB % Calc 5.3 % (<4) 07/08/21 13:55 Troponin I < 0.02 ng/mL (0-1.5) 07/08/21 13:55 Total Protein 5.0 g/dL (6.4-8.2) L 07/10/21 05:45 Albumin 2.0 g/dL (3.4-5.0) L 07/10/21 05:45 Globulin 3.0 g/dL (2.5-4.5) 07/10/21 05:45 Albumin/Globulin Ratio 0.7 Ratio (1.1-2.1) L 07/10/21 05:45 Amylase 49 Units/L (25-115) 07/09/21 05:11 Lipase 235 Units/L (73-393) 07/09/21 05:11 Specimen Type Catherized urine 07/09/21 04:01 Urine Color Yellow (YELLOW) 07/09/21 04:01 Urine Appearance Cloudy (CLEAR) 07/09/21 04:01 Urine pH 6.0 (5.0 - 8.0) 07/09/21 04:01 Ur Specific [place] 1.020 (1.000-1.030) 07/09/21 04:01 Urine Protein 2+ (NEGATIVE) 07/09/21 04:01 Urine Glucose (UA) Negative (NEGATIVE) 07/09/21 04:01 Urine Ketones 3+ (NEGATIVE) 07/09/21 04:01 Urine Occult Blood 4+ (NEGATIVE) 07/09/21 04:01 Urine Nitrite Positive (NEGATIVE) 07/09/21 04:01 Urine Bilirubin 1+ (NEGATIVE) 07/09/21 04:01 Urine Urobilinogen 2+ (NORMAL) 07/09/21 04:01 Ur Leukocyte Esterase 1+ (NEGATIVE) 07/09/21 04:01 Urine RBC None seen /HPF (0-3) 07/09/21 04:01 Urine WBC 10-20 /HPF (0-5) A 07/09/21 04:01 Ur Squamous Epith Cells Moderate /HPF (NEGATIVE) 07/09/21 04:01 Amorphous Sediment 2+ /HPF (NEGATIVE) 07/09/21 04:01 Urine Bacteria 3+ /HPF (NEGATIVE) 07/09/21 04:01 Ur Culture Indicated? Yes/culture set up 07/09/21 04:01 Stool Description 5 grms soft brown 07/11/21 15:20 Stl Occult Blood (IFOB) Positive (NEGATIVE) A 07/11/21 15:20 Stool for White Cells Positive (NEGATIVE) A 07/11/21 15:20 Stool H. pylori Ag Negative (NEGATIVE) 07/11/21 15:20 SARS CoV-2 RNA Rapid MARLENI Negative (NEGATIVE) 07/08/21 17:05 - Plan (1) Acute colitis Status: Acute Plan: IV CIPRO. STOOL STUDIES, IV HYDRATION. POTASSIUM REPLACEMENT. PAIN AND NAUSEA CONTROL. BP MONITORING (2) Generalized weakness Status: Acute (3) Nausea and vomiting Status: Acute Qualifiers: Vomiting type: unspecified Vomiting Intractability: non-intractable Qualified Code(s): R11.2 - Nausea with vomiting, unspecified (4) Acute UTI Status: Acute (5) DDD (degenerative disc disease), lumbar Status: Acute
[2021-07-11 18:30] LABS: CRYPTOSPORIDIUM PARVUM ANTIGEN NEGATIVE (NEGATIVE); GIARDIA LAMBLIA ANTIGEN NEGATIVE (NEGATIVE)
[2021-07-11] MEDS: VANCOMYCIN HCL 250 MG CAP PO SCH (20:39)
[2021-07-12] MEDS: NS + KCL 20 MEQ/L 1,000 ML IV SCH ×3 (02:06→16:34)
[2021-07-12] MEDS: VANCOMYCIN HCL 250 MG CAP PO SCH ×3 (02:30→15:30)
[2021-07-12] MEDS: FLAGYL IV PREMIX 500 MG BAG 500 MG/100 ML BAG IV SCH ×3 (02:30→15:29)
[2021-07-12 06:16] LABS: BASOPHILS % (AUTO) 0.9 % (0.2-1.0); EOSINOPHILS # (AUTO) 0.1 x10^3/uL (0.0-0.2); EOSINOPHILS % (AUTO) 2.3 % (0.9-2.9); HEMATOCRIT 30.9 % (36.0-47.0); HEMOGLOBIN 10.5 g/dL (12.0-16.0); LYMPHOCYTES # (AUTO) 0.9 X10^3/uL (1.3-2.9); LYMPHOCYTES % (AUTO) 23.3 % (21.0-51.0); MEAN CORPUSCULAR HEMOGLOBIN 32.3 pg (27.0-34.0); MEAN CORPUSCULAR HGB CONC 33.9 g/dL (33.0-35.0); MEAN CORPUSCULAR VOLUME 95.3 fL (80.0-100.0); MEAN PLATELET VOLUME 8.4 fL (7.4-11.0); MONOCYTES # (AUTO) 0.3 x10^3/uL (0.3-0.8); MONOCYTES % (AUTO) 8.6 % (0.0-13.0); NEUTROPHILS # (AUTO) 2.6 x10^3/uL (2.2-4.8); NEUTROPHILS % (AUTO) 64.9 % (42.0-75.0); PLATELET COUNT 164 X10^3/uL (150.0-450.0); RED BLOOD COUNT 3.25 X10^6/uL (3.5-5.4); RED CELL DISTRIBUTION WIDTH 15.2 % (11.6-16.5); WHITE BLOOD COUNT 4.1 X10^3/uL (3.6-10.0)
[2021-07-12 06:17] LABS: ALANINE AMINOTRANSFERASE 24 Units/L (12-78); ALBUMIN 2.2 g/dL (3.4-5.0); ALKALINE PHOSPHATASE 66 Units/L (46-116); ASPARTATE AMINO TRANSFERASE 32 Units/L (15-37); BLOOD UREA NITROGEN 4 mg/dL (7-18); CHLORIDE 102 mmol/L (98-107); COR CA(FOR HYPOALB) 9.4 mg/dL (8.5-10.1); SODIUM 135 mmol/L (136-145); TOTAL PROTEIN 5.1 g/dL (6.4-8.2); eGFR NON BLACK RACES > 60 (>60)
[2021-07-12] MEDS: CIPRO IV 400 MG PREMIX* 400 MG/200 ML IV.SOLN. IV SCH (10:12)
[2021-07-12] MEDS: CYMBALTA PO SCH (10:13)
[2021-07-12] MEDS: K-DUR TAB 20 MEQ PO SCH (10:13)
[2021-07-12] MEDS: LOVENOX INJ 40 MG SYR SC SCH (10:14)
[2021-07-12] MEDS: CULTURELLE PRO-WELL PROBIOTIC CAP PO SCH (15:30)
[2021-07-12 16:26] VITALS: BP 109/64
== END 2021-07-12 16:25 | disposition hospice, home (50) ==
LOC: ER 12:53 → OBS 12:53 → MED/SURG 07-11 16:21
PROVIDERS: ADMIT Internal Medicine; ATTEND Internal Medicine
DX: R10.84 Generalized abdominal pain; M51.06 Intervertebral disc disorders with myelopathy, lumbar region; N39.0 Urinary tract infection, site not specified; E86.0 Dehydration; E87.1 Hypo-osmolality and hyponatremia; R11.2 Nausea with vomiting, unspecified; R26.89 Other abnormalities of gait and mobility; R94.31 Abnormal electrocardiogram [ECG] [EKG]; A04.72 Enterocolitis due to Clostridium difficile, not specified as recurrent; R62.7 Adult failure to thrive; R53.1 Weakness; B96.29 Other Escherichia coli [E. coli] as the cause of diseases classified elsewhere; Z20.822 Contact with and (suspected) exposure to COVID-19; K92.1 Melena